=== PATIENT | female | born 1960 | race Caucasian/White ===

== ENCOUNTER → 2020-05-26 | Outpatient (CLI) | payer BC ==
[2020-05-26 09:39] VITALS: BP 119/70; PULSE 97; RESP 16; TEMP 98.9
== END | disposition home or self-care (01) ==
LOC: PROCWHC3 09:23
PROVIDERS: ATTEND Internal Medicine Endocrinology, Diabetes & Metabolism
DX: R23.2 Flushing (principal)
CPT/HCPCS: 83835; 99211; 36591; J1642

== ENCOUNTER → 2020-05-27 | Outpatient (CLI) | payer BC ==
--- NOTE | 2020-05-31 17:15 | PE ---
EXAM: WHOLE BODY PET CT DATE: 05/27/2020 CLINICAL HISTORY: 59-year-old female C90.00, initial staging multiple myeloma. Initially diagnosed ba ck in November 2009 status post bone marrow transplant in 2010. TECHNIQUE: Following the intravenous administration of 11.78 mCi of F-18 FDG, whole body images are performed from the skull vertex through the feet. Images are reviewed on the computer in the coronal , axial, and sagittal planes. Reconstructed rotating images are created on independent workstation a nd reviewed on the computer. A localization and attenuation correction CT is performed in conjuncti on with the PET scan. COMPARISON: None available Glucose level: 100 mg/dL Injection site: Right AC FINDINGS: PET: Physiologic FDG uptake within the neck. Physiologic FDG uptake within the chest. Scattered segmental mild bowel uptake likely physiologic. Otherwise, normal physiologic uptake in the abdomen and pelvis. Endplate deformities at T12, L1, and L2 appear to be chronic given the lack of any significant parave rtebral soft tissue swelling. Some mild associated uptake at these levels likely degenerative. Within the lower extremities, there is some nonspecific mild focal thickening in the right suprapatel lar region probably relating to some chronic synovial proliferation given the small effusion here. In addition, there is some mild focal uptake within the right midfoot that seems to be associated wit h degenerative change at the cuboid lateral cuneiform articulation. ATTENUATION CORRECTION CT: Visualized intracranial structures show no midline shift or hydrocephalus. Paranasal sinuses and mastoid air cells are clear. The orotracheal columns clear. No cervical lymphad enopathy. Right anterior chest wall injection port with catheter tip at the cavoatrial junction. Bilateral retr opectoral breast implants. Heart normal size without pericardial effusion. Mild LAD coronary calcific ations. Aorta normal caliber with bovine configuration. No thoracic lymphadenopathy by CT size criter ia allowing for noncontrast technique. Prominent dependent atelectasis in the lungs without consolid ation or pleural effusion. No dilated small bowel, free fluid, or free air. No mesenteric or retroperitoneal lymphadenopathy see n. There is moderate stool particularly in the left side of the colon. No pericolonic inflammatory ch ankit. Bladder partially distended. Uterus is visualized. Ovaries not clearly delineated from adjacent bowel . Pelvic phleboliths. No abnormal fluid collection in the pelvis or pelvic lymphadenopathy. Bones: Moderate degenerative change of the hips. Osteopenia. Facet arthropathy and degenerative disc disease throughout the lumbar spine. Cervical spondylosis and additional endplate spondylosis mid to lower thoracic spine. There is an exaggerated kyphosis of the thoracolumbar junction. Endplate deform ities as mentioned above. IMPRESSION: 1. Endplate deformities of T12, L1, and L2 result in an exaggerated kyphosis at the thoracolumbar kandy ction and have a chronic appearance given the lack of any surrounding soft tissue swelling. This can be compared to any available outside priors. Mild uptake at these levels is likely degenerative. 2. Otherwise, no suspicious hypermetabolism throughout the body to suggest active myelomatous involve ment.
== END | disposition home or self-care (01) ==
LOC: RADPETMAIN 14:16
PROVIDERS: ATTEND Internal Medicine Hematology & Oncology
DX: C90.00 Multiple myeloma not having achieved remission (principal); G95.29 Other cord compression; M40.205 Unspecified kyphosis, thoracolumbar region; Z92.21 Personal history of antineoplastic chemotherapy
CPT/HCPCS: 78816; A9552

== ENCOUNTER → 2020-10-22 | Outpatient (CLI) | payer BC, OTHER ==
--- NOTE | 2020-10-25 08:58 | PE ---
Nuclear medicine PET/CT HISTORY:C90.00 Multiple Myeloma without having achieved re Patient received 11 mCi F-18 FDG intravenously delayed scanning was performed through the whole body. An attenuation correction CT, localization CT scan was also performed and exam is correlated to prio r nuclear medicine PET/CT 05/27/2020 There is no significant interval change. Chest and neck: There is no supraclavicular or cervical adenopathy. No mediastinal, axillary, or sissy r adenopathy. Bilateral breast prostheses are noted. There is a right jugular central venous catheter , port is in the right pectoral region, catheter tip in the right atrium. There is no evident lung ma ss. Emphysematous changes are present in the upper lobes. There is no pleural or pericardial effusion . ABDOMEN: No suspicious uptake. Liver shows no mass. There is no retroperitoneal adenopathy. No ascite s. Uptake along the bowel is likely physiologic. Osseous structures show no suspicious uptake. There are lytic lucencies noted within the calvarium, s pine, pelvis and possibly related to low bone mineral, patient's underlying myeloma. Uptake along the legs and feet is likely physiologic. IMPRESSION: Findings consistent with patient's history multiple myeloma are suspected. No suspicious uptake.
== END | disposition home or self-care (01) ==
LOC: RADPETMAIN 08:21
PROVIDERS: ATTEND Internal Medicine Hematology & Oncology
DX: C90.00 Multiple myeloma not having achieved remission (principal)
CPT/HCPCS: 78816; A9552

== ENCOUNTER → 2020-11-18 | Outpatient (CLI) | payer BC, OTHER ==
--- NOTE | 2020-11-19 02:00 | MR ---
EXAMINATION TYPE: MR gennaro/ryan wo/w con DATE OF EXAM: 11/18/2020 COMPARISON: PET CT scan 10/22/2020 HISTORY: Multiple myeloma, mid back pain, low back pain down legs, and history of breast cancer. CONTRAST: Standard multiplanar, multisequence MRI departmental protocol utilizing 8.5 mL intravenous Gadavist g adolinium contrast. There is a thoracolumbar mild kyphotic deformity. There is 25% depression of the superior endplate of T6 vertebra. This shows mild enhancement. There is anterior wedging of T11 and T12 up to 35%. There is 70% wedging of L1 vertebra. There is biconcave deformity of L2 and L3 and L4 and L5 to 35% loss of height. I see no significant pathologic enhancement of the lumbar compression fractures. There is mi nimal enhancement of the T11 compression fracture. There is no thoracic or lumbar spinal stenosis. Lavonne mbar nerve roots appear normal. There is no evidence of a spinal cord mass. There is no thoracic para spinal mass. IMPRESSION: Numerous compression fractures. Mild thoracolumbar kyphotic deformity. There is some enhancement of T 6 and T11 that could relate to relatively acute fractures. I do not see a definite asymmetric lesion in the spine to suggest multiple myeloma. Myeloma not excluded. I do not see any significant decreased signal on the T1 images or typical asymmetric lesion that woul d be consistent with myeloma.
== END | disposition home or self-care (01) ==
LOC: RADMRIMAIN 20:40
PROVIDERS: ATTEND Internal Medicine Hematology & Oncology
DX: M48.54XA Collapsed vertebra, not elsewhere classified, thoracic region, initial encounter for fracture (principal)
CPT/HCPCS: 72157; 72158; A9585

== ENCOUNTER → 2020-11-24 | Outpatient (CLI) | payer BC, OTHER ==
--- NOTE | 2020-11-24 17:31 | ECHOF ---
Referral Reason:Z01.818 [facility] MEASUREMENTS -------- HEIGHT: 170.2 cm WEIGHT: 88.5 kg BP: RVIDd: 2.8 cm (< 3.3) IVSd: 1.2 cm (0.6 - 1.1) LVIDd: 4.1 cm (3.9 - 5.3) LVPWd: 1.1 cm (0.6 - 1.1) IVSs: 1.7 cm LVIDs: 2.9 cm LVPWs: 1.7 cm LAESV Index (A-L): 18.29 ml/m Ao Diam: 2.6 cm (2.0 - 3.7) AV Cusp: 1.8 cm (1.5 - 2.6) LA Diam: 3.4 cm (2.7 - 3.8) MV EXCURSION: 16.396 mm (> 18.000) MV EF SLOPE: 69 mm/s (70 - 150) EPSS: 0.5 cm MV E Ganesh: 0.37 m/s MV DecT: 376 ms MV A Ganesh: 0.65 m/s MV E/A Ratio: 0.57 RAP: 5.00 mmHg RVSP: 22.24 mmHg FINDINGS -------- Sinus rhythm. This was a technically difficult study with suboptimal views. Pt. Has Breast inplants The left ventricular size is normal. There is mild concentric left ventricular hypertrophy. Overa ll left ventricular systolic function is normal with, an EF between 55 - 60 %. The right ventricle is normal in size. Normal LA size by volume 22+/-6 ml/m2. The right atrial size is normal. 5.0mg of Lumason was utilized for enhancement of images Interatrial and interventricular septum intact. There is no evidence of aortic regurgitation. There is no evidence of aortic stenosis. There is trace mitral regurgitation. Mild tricuspid regurgitation present. There is no evidence of pulmonary hypertension. The right v entricular systolic pressure, as measured by Doppler, is 22.24mmHg. Trace/mild (physiologic) pulmonic regurgitation. The aortic root size is normal. IVC Not well visulized. There is no pericardial effusion. CONCLUSIONS -------- 1. The left ventricular size is normal. 2. There is mild concentric left ventricular hypertrophy. 3. Overall left ventricular systolic function is normal with, an EF between 55 - 60 %. 4. There is trace mitral regurgitation. 5. Mild tricuspid regurgitation present. 6. There is no evidence of pulmonary hypertension. 7. The right ventricular systolic pressure, as measured by Doppler, is 22.24mmHg. 8. Trace/mild (physiologic) pulmonic regurgitation. AUTO BODY DETAILER: Yadira Vegrara RDCS
== END | disposition home or self-care (01) ==
LOC: RADECHMAIN 11:58
PROVIDERS: ATTEND Internal Medicine Hematology & Oncology
DX: Z01.818 Encounter for other preprocedural examination (principal); I08.8 Other rheumatic multiple valve diseases
CPT/HCPCS: 93306; Q9950

== ENCOUNTER 2020-12-18 11:43 | Inpatient (IN) | payer BC, OTHER ==
[2020-12-18] MEDS ORDERED: IBUPROFEN IV 600 MG in SODIUM CHLORIDE 0.9% 250 ML IV STA (12:16)
[2020-12-18] MEDS ORDERED: ONDANSETRON 4 MG/2 ML VIAL IVP STA ×2 (12:16→14:22)
[2020-12-18] MEDS ORDERED: ACETAMINOPHEN TAB 500 MG TAB PO STA (12:16)
[2020-12-18] MEDS ORDERED: MORPHINE SULFATE 2 MG/ML SYRINGE IVP STA ×3 (12:16→14:22)
[2020-12-18] MEDS: SODIUM CHLORIDE 0.9% 500 ML 500 ML IV SCH ×3 (12:29→16:44)
--- NOTE | 2020-12-18 12:30 | ED ---
General Adult HPI - General Chief complaint: Nausea/Vomiting/Diarrhea Stated complaint: chemo reaction Time Seen by Provider: 12/18/20 11:45 Source: patient, RN notes reviewed, old records reviewed Mode of arrival: wheelchair Limitations: no limitations - History of Present Illness Initial comments: This a 60-year-old female presents emergency Department with a past medical history significant for multiple myeloma. Patient states she started new chem otherapy drug on and Saturday she started to feel better yesterday she was starting to get a slight headache and feeling very tired and nauseated. Patient today continues nausea and vomiting today and a significant headache. Patient states headache started as it was gotten considerably worse today. Patient states she doesn't think she has a fever even though I took her temperature is 102.2. Patient denies any cough patient is chest pain difficulty breathing first breath. Patient states she just aches all over. Patient denies any abdominal pain patient denies any dysuria hematuria urinary frequency. - Related Data Home Medications Medication Instructions Recorded Confirmed Acyclovir [Zovirax] 400 mg PO BID 12/18/20 12/18/20 Cholecalciferol [Vitamin D3 (25 50 mcg PO DAILY 12/18/20 12/18/20 Mcg = 1000 Iu)] Esomeprazole Magnesium [NexIUM] 40 mg PO DAILY 12/18/20 12/18/20 Gabapentin [Neurontin] 400 mg PO TID 12/18/20 12/18/20 HYDROcodone/APAP 10-325MG [[place] 1 tab PO Q6HR PRN 12/18/20 12/18/20 10-325] L.acidoph,Paracasei, B.lactis 1 cap PO DAILY 12/18/20 12/18/20 [Probiotic] Morphine Sulfate ER [Ms Contin] 15 mg PO HS 12/18/20 12/18/20 Morphine Sulfate ER [Ms Contin] 30 mg PO Q12HR 12/18/20 12/18/20 Rivaroxaban [Xarelto] 20 mg PO 12/18/20 12/18/20 Turmeric Root Extract [Turmeric] 500 mg PO DAILY 12/18/20 12/18/20 Venlafaxine HCl [Effexor XR] 150 mg PO DAILY 12/18/20 12/18/20 dexAMETHasone 20 mg PO 12/18/20 12/18/20 Allergies Allergy/AdvReac Type Severity Reaction Status Date / Time prochlorperazine AdvReac Rapid Verified 12/18/20 13:14 [From Compazine] Heart Rate Review of Systems ROS Statement: Those systems with pertinent positive or pertinent negative responses have been documented in the HPI. ROS Other: All systems not noted in ROS Statement are negative. Past Medical History Additional Past Medical History / Comment(s): multiple myeloma History of Any Multi-Drug Resistant Organisms: None Reported Past Surgical History: Breast Surgery Past Psychological History: No Psychological Hx Reported Smoking Status: Never smoker Past Alcohol Use History: None Reported Past Drug Use History: None Reported General Exam - General Exam Comments Initial Comments: GENERAL: Patient is well-developed and well-nourished. Patient is nontoxic and well- hydrated and is in mild distress. ENT: Neck is soft and supple. No significant lymphadenopathy is noted. Oropharynx is clear. Moist mucous membranes. Neck has full range of motion without eliciting any pain. EYES: The sclera were anicteric and conjunctiva were pink and moist. Extraocular movements were intact and pupils were equal round and reactive to light. E yelids were unremarkable. PULMONARY: Unlabored respirations. Good breath sounds bilaterally. No audible rales rhonchi or wheezing was noted. CARDIOVASCULAR: There is a regular rate and rhythm without any murmurs gallops or rubs. ABDOMEN: Soft and nontender with normal bowel sounds. SKIN: Skin is clear with no lesions or rashes and otherwise unremarkable. NEUROLOGIC: Patient is alert and oriented x3. Cranial nerves II through XII are grossly intact. Motor and sensory are also intact. Normal speech, volume and content. Symmetrical smile. MUSCULOSKELETAL: Normal extremities with adequate strength and full range of motion. LYMPHATICS: No significant lymphadenopathy is noted PSYCHIATRIC: Normal psychiatric evaluation. Limitations: no limitations Course Vital Signs 12/18/20 12/18/20 12/18/20 11:46 12:13 13:50 Temperature 97.8 F 102.2 F H 100.0 F H Pulse Rate 122 H 100 Respiratory 18 16 Rate Blood Pressure 115/70 95/51 O2 Sat by Pulse 97 95 Oximetry Medical Decision Making - Medical Decision Making EKG shows sinus tachycardia at 107 bpm VT interval is 118 QRS is 94 QT interval 342 QTC is 456 per patient's EKG shows no ST segment elevation or depression. CT of the brain shows no acute abnormality. Patient received a bolus of fluid of 1500 mL rales. Patient received Zofran and morphine, Tylenol or Motrin for the fever. Patient also received cefepime for the fever of unknown origin per the oncologist request. I spoke with Dr. Castillo and he agreed to admit the patient admitted the patient wrote admitting orders. - Lab Data Result diagrams: 12/18/20 12:21 12/18/20 12:21 Lab Results 12/18/20 12/18/20 12/18/20 Range/Units 12:21 12:21 12:21 WBC 3.0 L (3.8-10.6) k/uL RBC 2.91 L (3.80-5.40) m/uL Hgb 9.5 L (11.4-16.0) gm/dL Hct 27.0 L (34.0-46.0) % MCV 92.9 (80.0-100.0) fL MCH 32.5 (25.0-35.0) pg MCHC 35.0 (31.0-37.0) g/dL RDW 16.4 H (11.5-15.5) % Plt Count 182 (150-450) k/uL MPV 7.0 Neutrophils % 80 % Lymphocytes % 6 % Monocytes % 10 % Eosinophils % 2 % Basophils % 0 % Neutrophils # 2.4 (1.3-7.7) k/uL Lymphocytes # 0.2 L (1.0-4.8) k/uL Monocytes # 0.3 (0-1.0) k/uL Eosinophils # 0.1 (0-0.7) k/uL Basophils # 0.0 (0-0.2) k/uL Anisocytosis Slight PT (9.0-12.0) sec INR (<1.2) APTT (22.0-30.0) sec Sodium 134 L (137-145) mmol/L Potassium 3.5 (3.5-5.1) mmol/L Chloride 101 (98-107) mmol/L Carbon Dioxide 21 L (22-30) mmol/L Anion Gap 12 mmol/L BUN 20 H (7-17) mg/dL Creatinine 0.74 (0.52-1.04) mg/dL Est GFR (CKD-EPI)AfAm >90 (>60 ml/min/1.73 sqM) Est GFR (CKD-EPI)NonAf >90 (>60 ml/min/1.73 sqM) Glucose 112 H (74-99) mg/dL Plasma Lactic Acid Theodore 2.4 H* (0.7-2.0) mmol/L Calcium 8.8 (8.4-10.2) mg/dL Total Bilirubin 0.1 L (0.2-1.3) mg/dL AST 33 (14-36) U/L ALT 24 (4-34) U/L Alkaline Phosphatase 69 (38-126) U/L Total Protein 8.1 (6.3-8.2) g/dL Albumin 4.2 (3.5-5.0) g/dL Urine Color Urine Appearance (Clear) Urine pH (5.0-8.0) Ur Specific [place] (1.001-1.035) Urine Protein (Negative) Urine Glucose (UA) (Negative) Urine Ketones (Negative) Urine Blood (Negative) Urine Nitrite (Negative) Urine Bilirubin (Negative) Urine Urobilinogen (<2.0) mg/dL Ur Leukocyte Esterase (Negative) Urine RBC (0-5) /hpf Urine WBC (0-5) /hpf Urine Bacteria (None) /hpf Coronavirus (PCR) (Not Detectd) 12/18/20 12/18/20 12/18/20 Range/Units 12:38 13:27 14:03 WBC (3.8-10.6) k/uL RBC (3.80-5.40) m/uL Hgb (11.4-16.0) gm/dL Hct (34.0-46.0) % MCV (80.0-100.0) fL MCH (25.0-35.0) pg MCHC (31.0-37.0) g/dL RDW (11.5-15.5) % Plt Count (150-450) k/uL MPV Neutrophils % % Lymphocytes % % Monocytes % % Eosinophils % % Basophils % % Neutrophils # (1.3-7.7) k/uL Lymphocytes # (1.0-4.8) k/uL Monocytes # (0-1.0) k/uL Eosinophils # (0-0.7) k/uL Basophils # (0-0.2) k/uL Anisocytosis PT 10.5 (9.0-12.0) sec INR 1.0 (<1.2) APTT 30.1 H (22.0-30.0) sec Sodium (137-145) mmol/L Potassium (3.5-5.1) mmol/L Chloride (98-107) mmol/L Carbon Dioxide (22-30) mmol/L Anion Gap mmol/L BUN (7-17) mg/dL Creatinine (0.52-1.04) mg/dL Est GFR (CKD-EPI)AfAm (>60 ml/min/1.73 sqM) Est GFR (CKD-EPI)NonAf (>60 ml/min/1.73 sqM) Glucose (74-99) mg/dL Plasma Lactic Acid Theodore (0.7-2.0) mmol/L Calcium (8.4-10.2) mg/dL Total Bilirubin (0.2-1.3) mg/dL AST (14-36) U/L ALT (4-34) U/L Alkaline Phosphatase (38-126) U/L Total Protein (6.3-8.2) g/dL Albumin (3.5-5.0) g/dL Urine Color Light Yellow Urine Appearance Clear (Clear) Urine pH 6.5 (5.0-8.0) Ur Specific [place] 1.009 (1.001-1.035) Urine Protein Negative (Negative) Urine Glucose (UA) Negative (Negative) Urine Ketones Negative (Negative) Urine Blood Moderate H (Negative) Urine Nitrite Negative (Negative) Urine Bilirubin Negative (Negative) Urine Urobilinogen <2.0 (<2.0) mg/dL Ur Leukocyte Esterase Negative (Negative) Urine RBC 16 H (0-5) /hpf Urine WBC <1 (0-5) /hpf Urine Bacteria Rare H (None) /hpf Coronavirus (PCR) Not Detected (Not Detectd) Disposition Clinical Impression: Acute vomiting, Fever of unknown origin, Dehydration Disposition: ADMITTED IP TO THIS [facility] Referrals: Pam Chacon MD [Primary Care Provider] - 1-2 days Time of Disposition: 14:24
[2020-12-18 12:33] LABS: Anisocytosis Slight; Basophils % (A) 0 %; Eosinophils # (A) 0.1 k/uL (0-0.7); Eosinophils % (A) 2 %; HGB 9.5 gm/dL (11.4-16.0); Lymphocytes # (A) 0.2 k/uL (1.0-4.8); Lymphocytes % (A) 6 %; MCH 32.5 pg (25.0-35.0); MCV 92.9 fL (80.0-100.0); Monocytes # (A) 0.3 k/uL (0-1.0); Monocytes % (A) 10 %; Neutrophils # (A) 2.4 k/uL (1.3-7.7); Neutrophils % (A) 80 %; Platelet Count 182 k/uL (150-450); RBC 2.91 m/uL (3.80-5.40); RDW 16.4 % (11.5-15.5)
[2020-12-18 13:06] LABS: ALT 24 U/L (4-34); AST 33 U/L (14-36); African American GFR (CKD) >90 (>60 ml/min/1.73 sqM); Albumin 4.2 g/dL (3.5-5.0); Alkaline Phosphatase 69 U/L (38-126); Anion Gap 12 mmol/L; Blood Urea Nitrogen 20 mg/dL (7-17); Calcium 8.8 mg/dL (8.4-10.2); Carbon Dioxide 21 mmol/L (22-30); Chloride 101 mmol/L (98-107); Glucose 112 mg/dL (74-99); Non-African American GFR(CKD) >90 (>60 ml/min/1.73 sqM); Potassium 3.5 mmol/L (3.5-5.1); Sodium 134 mmol/L (137-145); Total Bilirubin 0.1 mg/dL (0.2-1.3); Total Protein 8.1 g/dL (6.3-8.2)
--- NOTE | 2020-12-18 13:21 | XR ---
EXAMINATION TYPE: XR chest 2V DATE OF EXAM: 12/18/2020 COMPARISON: Thoracic spine MRI dated 11/18/2020 HISTORY: 60 years Female. STUDY INDICATION GIVEN: Fever . TECHNIQUE: Frontal lateral chest radiographs IMPRESSION: Patchy pneumonic consolidation is seen in the left lower lobe. No pneumothorax or pleural effusion se en. Cardiomediastinal silhouette is normal. Postsurgical changes seen in the mediastinum. Accessed right Port-A-Cath tip at the cavoatrial junction. Clips in the left axilla are also noted. Remote fracture deformities loss of vertebral height is seen in the lower thoracic and upper lumbar spine, better seen and demonstrated on most recent MR of the spine.
--- NOTE | 2020-12-18 13:26 | CT ---
EXAMINATION TYPE: CT brain wo con DATE OF EXAM: 12/18/2020 COMPARISON: None HISTORY: Acute headache TECHNIQUE: CT scan of the head performed without contrast CT DLP: 1178.4 mGycm Automated exposure control for dose reduction was used. FINDINGS: No evidence for acute intracranial hemorrhage, midline shift or mass effect. [place]-white matter differ entiation is preserved. CSF spaces and ventricular system are normal in configuration. Minimal atherosclerotic calcification seen in the intracranial internal carotid arteries. No acute orbital, osseous or soft tissue abnormality. Paranasal sinuses and mastoid air cells are wit hin normal limit with mild mucosal thickening. Few well-defined hypoattenuating lesions are seen in the left frontal and parietal lobes superiorly, were seen on 10/22/2020. IMPRESSION: 1. NO EVIDENCE OF ACUTE INTRACRANIAL ABNORMALITY. 2. STABLE FEW WELL-DEFINED LOW ATTENUATING LESIONS SEEN IN THE LEFT FRONTAL AND PARIETAL LOBES, THESE COULD BE RELATED TO KNOWN MULTIPLE MYELOMA, CLINICAL CORRELATION RECOMMENDED.
[2020-12-18 13:42] LABS: Partial Thromboplastin Time 30.1 sec (22.0-30.0); Prothrombin Time 10.5 sec (9.0-12.0)
[2020-12-18] MEDS ORDERED: CEFEPIME 2 GM in SODIUM CHLORIDE 0.9% 100 ML IVPB STA (13:59)
[2020-12-18 14:15] LABS: Appearance,Urine Clear (Clear); Bacteria,Urine Rare /hpf; Bilirubin,Urine Negative (Negative); Blood,Urine Moderate (Negative); Color,Urine Light Yellow; Glucose,Urine (UA) Negative (Negative); Ketones,Urine Negative (Negative); Leukocyte Esterase,Urine Negative (Negative); Nitrite,Urine Negative (Negative); PH, Urine 6.5 (5.0-8.0); Protein,Urine Negative (Negative); RBC,Urine 16 /hpf (0-5); Specific Gravity,Urine 1.009 (1.001-1.035); Urobilinogen,Urine <2.0 mg/dL (<2.0); WBC,Urine <1 /hpf (0-5)
[2020-12-18] MEDS ORDERED: ONDANSETRON 4 MG/2 ML VIAL IVP PRN (14:22)
[2020-12-18] MEDS ORDERED: ACETAMINOPHEN TAB 325 MG TAB PO PRN (14:30)
[2020-12-18] MEDS: GABAPENTIN 400 MG CAP PO SCH ×2 (17:31→21:22)
[2020-12-18] MEDS: MORPHINE SULFATE 4 MG/ML SYRINGE IVP PRN (17:32)
[2020-12-18] MEDS ORDERED: MORPHINE SULFATE ER 15 MG TABLET PO SCH (21:00)
[2020-12-18] MEDS: MORPHINE SULFATE ER 30 MG TABLET PO SCH (21:22)
[2020-12-18] MEDS: RIVAROXABAN 20 MG TAB PO SCH (21:42)
[2020-12-18] MEDS: ACYCLOVIR 200 MG CAP PO SCH (21:42)
[2020-12-18] MEDS: CEFEPIME 2 GM in SODIUM CHLORIDE 0.9% 100 ML IVPB SCH (23:31)
--- NOTE | 2020-12-19 00:13 | P.HPIM ---
History of Present Illness H&P Date: 12/18/20 Chief Complaint: Nausea vomiting and diarrhea. Patient is a 60-year-old female with a known history of multiple myeloma diagnosed about 10 years ago and was on chemotherapy, recently started on new chemotherapy presents ER with complaints of nausea vomiting and feeling tired and diarrhea. Patient was started on new chemotherapy drug on and Saturday. Saturday she started feeling better but since yesterday her symptoms got worse. Continue his to have nausea and vomiting and severe headache. Patient was febrile while in the ER. With T-max of 102.2 and pulse 122 and respirations 18 and pulse ox 97% on room air. No complaints of chest pain. No shortness of. No cough or sputum production. Denied any dysuria or hematuria. Laboratory data showed WBC is 3.0 hemoglobin 9.5 and platelets 182 Sodium 134 potassium 3.5 chloride 101 bicarb 21 BUN 20 and creatinine 0.74 lactic acid 2.4 Urinalysis showed moderate blood and 16 RBCs. COVID-19 PCR not detected Chest x-ray showed patchy pneumonic consolidation is seen the left lower lobe. No pneumothorax or pleural effusion seen. EKG showed sinus tachycardia Review of Systems Constitutional: Patient does have subjective fevers and chills. Generalized weakness and lethargic.. Abdomen: Patient complains of nausea vomiting and diarrhea. No abdominal pain. Cardiovascular: Patient denies any chest pain or short of breath no palpitations. Respiratory: patient denied any cough is from production. No shortness of breath Neurologic: Patient denied any numbness or tingling headache. Musculoskeletal: Patient denies any complaints of joint swelling or deformity. Skin: Negative Psychiatric: Negative Endocrine: No heat or cold intolerance. No recent weight gain. Genitourinary: No dysuria or hematuria. All other 14 point ROS negative except the above Past Medical History Additional Past Medical History / Comment(s): multiple myeloma History of Any Multi-Drug Resistant Organisms: None Reported Past Surgical History: Breast Surgery Past Psychological History: No Psychological Hx Reported Smoking Status: Never smoker Past Alcohol Use History: None Reported Past Drug Use History: None Reported - Past Family History Father Family Medical History: Cancer Additional Family Medical History / Comment(s): from lung cancer Mother Family Medical History: AFIB, Coronary Artery Disease (CAD) Medications and Allergies Home Medications Medication Instructions Recorded Confirmed Type Acyclovir [Zovirax] 400 mg PO BID 12/18/20 12/18/20 History Cholecalciferol [Vitamin D3 (25 50 mcg PO DAILY 12/18/20 12/18/20 History Mcg = 1000 Iu)] Esomeprazole Magnesium [NexIUM] 40 mg PO DAILY 12/18/20 12/18/20 History Gabapentin [Neurontin] 400 mg PO TID 12/18/20 12/18/20 History HYDROcodone/APAP 10-325MG [[place] 1 tab PO Q6HR PRN 12/18/20 12/18/20 History 10-325] L.acidoph,Paracasei, B.lactis 1 cap PO DAILY 12/18/20 12/18/20 History [Probiotic] Morphine Sulfate ER [Ms Contin] 15 mg PO HS 12/18/20 12/18/20 History Morphine Sulfate ER [Ms Contin] 30 mg PO Q12HR 12/18/20 12/18/20 History Rivaroxaban [Xarelto] 20 mg PO HS 12/18/20 12/18/20 History Turmeric Root Extract [Turmeric] 500 mg PO DAILY 12/18/20 12/18/20 History Venlafaxine HCl [Effexor XR] 150 mg PO DAILY 12/18/20 12/18/20 History dexAMETHasone 20 mg PO TH 12/18/20 12/18/20 History Allergies Allergy/AdvReac Type Severity Reaction Status Date / Time prochlorperazine AdvReac Rapid Verified 12/18/20 13:14 [From Compazine] Heart Rate Physical Exam Vitals: Vital Signs Temp Pulse Resp BP Pulse Ox 12/18/20 15:01 98.8 F 113 H 18 109/69 98 12/18/20 13:50 100.0 F H 100 16 95/51 95 12/18/20 12:13 102.2 F H 12/18/20 11:46 97.8 F 122 H 18 115/70 97 Intake and Output 12/18/20 12/18/20 12/18/20 06:59 14:59 22:59 Other: Weight 83.915 kg PHYSICAL EXAMINATION: Patient is lying in the bed comfortably, no acute distress, awake alert and oriented.. HEENT: Normocephalic. Neck is supple. Pupils reactive. Nostrils clear. Oral cavity is moist. Neck reveals no JVD, carotid bruits, or thyromegaly. CHEST EXAMINATION: Trachea is central. Symmetrical expansion. Lung rodriguez clear to auscultation and percussion. CARDIAC: Normal S1, S2 with no gallops. No murmurs ABDOMEN: Soft. Bowel sounds normal. No organomegaly. No abdominal bruits. Extremities: reveal no edema. No clubbing or cyanosis Neurologically awake, alert, oriented x3 with well-coordinated movements. No focal deficits noted Skin: No rash or skin lesions. Psychiatric: Coperative. Nonsuicidal Musculoskeletal: No joint swelling or deformity. Normal range of motion. Results CBC & Chem 7: 12/19/20 06:34 12/19/20 06:34 Labs: Abnormal Lab Results - Last 24 Hours (Table) 12/18/20 12/18/20 12/18/20 Range/Units 12:21 12:21 12:21 WBC 3.0 L (3.8-10.6) k/uL RBC 2.91 L (3.80-5.40) m/uL Hgb 9.5 L (11.4-16.0) gm/dL Hct 27.0 L (34.0-46.0) % RDW 16.4 H (11.5-15.5) % Lymphocytes # 0.2 L (1.0-4.8) k/uL APTT (22.0-30.0) sec Sodium 134 L (137-145) mmol/L Carbon Dioxide 21 L (22-30) mmol/L BUN 20 H (7-17) mg/dL Glucose 112 H (74-99) mg/dL Plasma Lactic Acid Theodore 2.4 H* (0.7-2.0) mmol/L Total Bilirubin 0.1 L (0.2-1.3) mg/dL Urine Blood (Negative) Urine RBC (0-5) /hpf Urine Bacteria (None) /hpf 12/18/20 12/18/20 Range/Units 13:27 14:03 WBC (3.8-10.6) k/uL RBC (3.80-5.40) m/uL Hgb (11.4-16.0) gm/dL Hct (34.0-46.0) % RDW (11.5-15.5) % Lymphocytes # (1.0-4.8) k/uL APTT 30.1 H (22.0-30.0) sec Sodium (137-145) mmol/L Carbon Dioxide (22-30) mmol/L BUN (7-17) mg/dL Glucose (74-99) mg/dL Plasma Lactic Acid Theodore (0.7-2.0) mmol/L Total Bilirubin (0.2-1.3) mg/dL Urine Blood Moderate H (Negative) Urine RBC 16 H (0-5) /hpf Urine Bacteria Rare H (None) /hpf Thrombosis Risk Factor Assmnt - DVT/VTE Prophylaxis DVT/VTE Prophylaxis: Pharmacologic Prophylaxis ordered Assessment and Plan Assessment: Fever likely due to left lower lobe consolidation/pneumonia. Neutropenic fever Lactic acidosis Hypovolemic hyponatremia Multiple myeloma , recently started on new chemotherapy drug Nausea vomiting and generalized weakness. History of PE currently on anticoagulation thyroxine 1 DVT prophylaxis Plan: Patient be continued on IV hydration. Symptomatic management for nausea and vomiting. Patient does not have any symptoms of cough or sputum production. Continue with antibiotic in the form of cefepime for possible gram-negative pneumonia. Follow up blood cultures. Continue with symptomatic management and encourage oral intake. Continue to follow closely. Oncology and ID was consulted. Time with Patient: Greater than 30
[2020-12-19] MEDS: MORPHINE SULFATE 4 MG/ML SYRINGE IVP PRN ×3 (03:14→20:13)
[2020-12-19] MEDS: HYDROcodone/APAP 10-325MG 1 EACH TAB PO PRN ×3 (05:29→18:19)
[2020-12-19] MEDS: MORPHINE SULFATE ER 30 MG TABLET PO SCH ×2 (08:46→22:06)
[2020-12-19] MEDS: LACTOBACILLUS ACIDOPH & BULGAR 1 EACH PACKET PO SCH (08:46)
[2020-12-19] MEDS: GABAPENTIN 400 MG CAP PO SCH ×3 (08:46→22:06)
[2020-12-19] MEDS: ACYCLOVIR 200 MG CAP PO SCH ×2 (08:46→20:12)
[2020-12-19] MEDS: CEFEPIME 2 GM in SODIUM CHLORIDE 0.9% 100 ML IVPB SCH ×2 (08:47→16:00)
[2020-12-19] MEDS: VENLAFAXINE HCL ER 150 MG CAP PO SCH (08:48)
[2020-12-19] MEDS: PANTOPRAZOLE 40 MG TABLET PO SCH (08:48)
[2020-12-19 11:41] LABS: Basophils # (A) 0.01 X 10*3/uL (0.00-0.10); Basophils % (A) 0.5 %; Eosinophils # (A) 0.01 X 10*3/uL (0.04-0.35); Eosinophils % (A) 0.5 %; HCT 27.5 % (37.2-46.3); HGB 8.9 g/dL (12.0-15.0); Lymphocytes # (A) 0.35 X 10*3/uL (0.90-5.00); Lymphocytes % (A) 16.1 %; MCHC 32.4 g/dL (32.0-37.0); MCV 95.8 fL (80.0-97.0); Mean Platelet Volume 10.5 fL (9.5-12.2); Monocytes # (A) 0.23 X 10*3/uL (0.20-1.00); Monocytes % (A) 10.6 %; Neutrophils # (A) 1.54 X 10*3/uL (1.80-7.70); Neutrophils % (A) 70.9 %; Platelet Count 156 X 10*3/uL (140-440); RBC 2.87 X 10*6/uL (4.10-5.20); WBC 2.17 X 10*3/uL (4.50-10.00)
[2020-12-19 11:53] LABS: African American GFR (CKD) 71.9 (60.0-200.0); Anion Gap 7.2 mmol/L (4.00-12.00); Calcium 8.4 mg/dL (8.7-10.3); Carbon Dioxide 25.8 mmol/L (21.6-31.8); Non-African American GFR(CKD) 62.1 (60.0-200.0); Potassium 3.7 mmol/L (3.5-5.5)
--- NOTE | 2020-12-19 16:39 | P.PN ---
Subjective Progress Note Date: 12/19/20 Principal diagnosis: Neutropenic fever Left-sided pneumonia Patient is a 60-year-old female with a known history of multiple myeloma diagnosed about 10 years ago and was on chemotherapy, recently started on new chemotherapy presents ER with complaints of nausea vomiting and feeling tired and diarrhea. Patient was started on new chemotherapy drug on and Saturday. Saturday she started feeling better but since yesterday her symptoms got worse. Continue his to have nausea and vomiting and severe headache. Patient was febrile while in the ER. With T-max of 102.2 and pulse 122 and respirations 18 and pulse ox 97% on room air. No complaints of chest pain. No shortness of. No cough or sputum production. Denied any dysuria or hematuria. Laboratory data showed WBC is 3.0 hemoglobin 9.5 and platelets 182 Sodium 134 potassium 3.5 chloride 101 bicarb 21 BUN 20 and creatinine 0.74 lactic acid 2.4 Urinalysis showed moderate blood and 16 RBCs. COVID-19 PCR not detected Chest x-ray showed patchy pneumonic consolidation is seen the left lower lobe. No pneumothorax or pleural effusion seen. EKG showed sinus tachycardia 12/19/2020 Patient is feeling better today. Nausea and vomiting improved. No diarrhea. Able to tolerate oral diet. Patient is still having slight temperature with T- max 98.8. Follow-up culture reports. Continued on antibiotics. Denied any complains of cough or sputum production. No headache or dizziness or lightheadedness. No dysuria or hematuria. Current medications reviewed. Objective - Vital Signs Vital signs: Vital Signs Temp 98.2 F 12/19/20 14:00 Pulse 107 H 12/19/20 14:00 Resp 17 12/19/20 14:00 BP 96/64 12/19/20 14:00 Pulse Ox 91 L 12/19/20 14:00 Intake & Output 12/18/20 12/19/20 12/19/20 18:59 06:59 18:59 Intake Total 500 380 Balance 500 380 Weight 83.915 kg Intake: Intake, IV Titration 500 Amount Sodium Chloride 0.9% 500 500 ml 500 ml @ 1000 mls/hr IV Q[facility]M [facility] Rx#:[id number] Oral 380 Other: Voiding Method Toilet # Voids 1 - Exam PHYSICAL EXAMINATION: Patient is lying in the bed comfortably, no acute distress, awake alert and oriented.. HEENT: Normocephalic. Neck is supple. Pupils reactive. Nostrils clear. Oral cavity is moist. Neck reveals no JVD, carotid bruits, or thyromegaly. CHEST EXAMINATION: Trachea is central. Symmetrical expansion. Lung rodriguez clear to auscultation and percussion. CARDIAC: Normal S1, S2 with no gallops. No murmurs ABDOMEN: Soft. Bowel sounds normal. No organomegaly. No abdominal bruits. Extremities: reveal no edema. No clubbing or cyanosis Neurologically awake, alert, oriented x3 with well-coordinated movements. No focal deficits noted Skin: No rash or skin lesions. Psychiatric: Coperative. Nonsuicidal Musculoskeletal: No joint swelling or deformity. Normal range of motion. - Labs CBC & Chem 7: 12/19/20 06:34 12/19/20 06:34 Labs: Abnormal Lab Results - Last 24 Hours (Table) 12/19/20 12/19/20 Range/Units 06:34 06:34 WBC 2.17 L (4.50-10.00) X 10*3/uL RBC 2.87 L (4.10-5.20) X 10*6/uL Hgb 8.9 L (12.0-15.0) g/dL Hct 27.5 L (37.2-46.3) % RDW 16.0 H (11.5-14.5) % Absolute Nucleated RBC 0.02 H (0.00-0.00) X 10*3/uL Neutrophils # 1.54 L (1.80-7.70) X 10*3/uL Lymphocytes # 0.35 L (0.90-5.00) X 10*3/uL Eosinophils # 0.01 L (0.04-0.35) X 10*3/uL NRBC/100 WBC Diff 0.9 H (0.0-0.0) /100 WBCS Calcium 8.4 L (8.7-10.3) mg/dL Microbiology - Last 24 Hours (Table) 12/18/20 12:20 Blood Culture - Preliminary Blood No Growth after 24 hours 12/18/20 12:35 Blood Culture - Preliminary Blood No Growth after 24 hours Assessment and Plan Assessment: Fever likely due to left lower lobe consolidation/pneumonia. Neutropenic fever Lactic acidosis Hypovolemic hyponatremia Multiple myeloma , recently started on new chemotherapy drug Nausea vomiting and generalized weakness. History of PE currently on anticoagulation thyroxine 1 DVT prophylaxis Plan: Patient be continued on IV hydration. Symptomatic management for nausea and vomiting. Patient does not have any symptoms of cough or sputum production. Continue with antibiotic in the form of cefepime for possible gram-negative pneumonia. Follow up blood cultures. Continue with symptomatic management and encourage oral intake. Continue to follow closely. Oncology and ID was consulted. Time with Patient: Greater than 30
--- NOTE | 2020-12-19 17:46 | P.CONS ---
History of Present Illness - Reason for Consult Consult date: 12/19/20 MM Requesting physician: Kerwin Castillo - Chief Complaint Vomiting, headache, fever - History of Present Illness Ms. Bro is a very pleasant 60 yo female with history of MM, s/p several lines of treatmetn as outlined below, most recently started on Kyprolis/dex on 12/15/20, here for intractable vomiting, headaches, body aches, and fever of 102.2. Work up so far with CXR reveals LLL patchy consolidation, UA negative, WBC 2.1, ANC 1.5, plt 156, Hgb 8.9, and CT head negative except for stable frontal/parietal lobe lesions compared to 10/22/20. I do not see this CT report however and unclear if this is due to intracranial lesions from MM. She was hydrated and started on antibiotics, cultures pending, and admitted. Overall feeling better on antibiotics and hydration. Continues to have bilateral frontal/temporal headaches that is barely controlled on her narcotics she takes for prior bone lesions and fractures from her MM. Pt does mention that she had fevers with velcade when her MM was initially diagnosed and needed premedication with tylenol. Onc History: This is a very nice lady who was initially diagnosed with IgG [place] multiple myeloma in 2010 (high risk,17p deletion),she was treated with RVD for 4 months followed by autologous stem cell transplant in May/2011 and maintenance revlimid until October/2013 when she had disease progression,she was put on revlimid/dex for about 2 months with further progression,then she went on clinical trial with ixazomib,pomalidomide/dex but progressed in about a month with rising M-protein,she was then treated with bendamustine/velcade for 4 cycles with very good response,M-protein was down to 0.13 gm/dl,and went on maintenance velcade since August/2014. In 2017,she was diagnosed with left breast cancer,triple negative,stage IIB (T2:2.5 cm tumor),N1 (1/7 nodes was positive),her myeloma treatment was held,she had bilateral mastectomies and received adjuvant 12 weekly taxol followed by 4 cycles of AC. 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 In early 2017,she had progression of her myeloma and was put on darzalex,subsequently,pomalyst/dex added in the spring (most of her initial treatment were done at [facility] in [place]). She moved to [place] and resumed her treatmet with Dr Piña.(previous records reviewed) She came to see me to establish treatment closer to home. On 03/17/2019,SPEP revealed M-protein of 0.5gm/dl,serum IgG 880 mg/dl,serum free kappa 2.57 mg/dl,free lambda 0.04mg/dl She had a spine MRI done at [facility] on 05/17/2019,due to von pain,there was no new lesions related to her multiple myeloma. On 05/18/2019,SPEP and immunofixation identified a M protein,M-spike 0.57gm/dl,serum IgG 871 mg/dl,serum free kappa 2.75mg/dl,lambda 0.02 mg/dl. On 07/21/2019,SPEP and immunofixation reveale M-spike 0.59 mg/dl,serum IgG 1010mg/dl,serum free kappa 3.46 and Lambda 0.03 mg/dl On 09/15/2019,M-protein was 0.8gm/dl,IgG 1022 mg/dl,[place]/lambda ratio 23.17 On 09/29/2019,M-Protein was 0.69 gm/dl(IgGK).serum IgG 1050 mg/dl.serum free kappa 6.44 mg/dl, On 10/28/2019,IgGK Mprotein was 0.75gm/dl,serum IgG 1170mg/dl,serum free kappa 7.28mg/dl, On 11/25/2019,IgGK M protein was 0.76gm/dl,serum IgG 1140mg/dl,serum free kappa 5.47,ratio 54.7. On 12/28/2019,IgG-K M-protein was 0,8gm/dl,serum IgG 1440 mg/dl,serum free kappa 6.8 mg/dl,ratio 48.57 On 01/27/2020,SPEP and immunofixation revealed IgG [place] M-protein 0.8gm/dl,serum free kappa 7.8mg/dl,ratio 71.45 On 04/27/2020,SPEP and immunofixation revealed IgGK M-spike of 1.0 gm/dl,serum IgG 1380 mg/dl.serum free kappa 14.9 mg/dl. On 05/27/2020,PET scan revealed no evidence of disease. On 07/05/2020,SPEP and immunofixation revealed IgGK M-spike of 1.2gm/dl,serum IgG 1710 mg/dl,serum free kappa 18.5 mg/dl. On 07/08/2020,SPEP and immunofixation revealed IgGK M-spike 1.2 gm/dl,serum free bull 18.5 mg/dl,IgG 1760 mg/dl. On 09/06/2020,serum free kappa was 23 mg/dl,lambda 0.14 mg/dl,IgG K M spike 1.29 gm/dl. On 10/11/2020,SPEP and immunofixation revealed IgK M-protein of 1.54 gm/dl,serum free kappa 36.2 mg/dl,lambda 0.14 mg/dl,serum IgG 2010 mg/dl. On 10/22/2020,PET scan revealed osseous structures also include multiple compression deformities noted previously within the lumbar region, lower thoracic region, heterogeneous bone density is suspected. At the T6-7 level there is some mild uptake noted, SUV 3.1, at T11 SUV is 3. On 11/18/2020,Spine MRI revealed multiple compression deformities,some enhancement at T6 and T11 suggestive of possible new acute compression fracture,no evidence of any soft tissue mass 11/21/20: Seen in follow up by Dr. Bennett. Plan on switching treatmetn from pomal yst to kyprolis/dex. Referred for consideration of CAR T cell therapy, and possibly add selinexor in future. 12/15/20: Received 1st cycle of Kyprolis/dex. Past Medical History Additional Past Medical History / Comment(s): multiple myeloma History of Any Multi-Drug Resistant Organisms: None Reported Past Surgical History: Breast Surgery Past Psychological History: No Psychological Hx Reported Smoking Status: Never smoker Past Alcohol Use History: None Reported Past Drug Use History: None Reported - Past Family History Father Family Medical History: Cancer Additional Family Medical History / Comment(s): from lung cancer Mother Family Medical History: AFIB, Coronary Artery Disease (CAD) Medications and Allergies Home Medications Medication Instructions Recorded Confirmed Type Acyclovir [Zovirax] 400 mg PO BID 12/18/20 12/18/20 History Cholecalciferol [Vitamin D3 (25 50 mcg PO DAILY 12/18/20 12/18/20 History Mcg = 1000 Iu)] Esomeprazole Magnesium [NexIUM] 40 mg PO DAILY 12/18/20 12/18/20 History Gabapentin [Neurontin] 400 mg PO TID 12/18/20 12/18/20 History HYDROcodone/APAP 10-325MG [[place] 1 tab PO Q6HR PRN 12/18/20 12/18/20 History 10-325] L.acidoph,Paracasei, B.lactis 1 cap PO DAILY 12/18/20 12/18/20 History [Probiotic] Morphine Sulfate ER [Ms Contin] 15 mg PO HS 12/18/20 12/18/20 History Morphine Sulfate ER [Ms Contin] 30 mg PO Q12HR 12/18/20 12/18/20 History Rivaroxaban [Xarelto] 20 mg PO HS 12/18/20 12/18/20 History Turmeric Root Extract [Turmeric] 500 mg PO DAILY 12/18/20 12/18/20 History Venlafaxine HCl [Effexor XR] 150 mg PO DAILY 12/18/20 12/18/20 History dexAMETHasone 20 mg PO TH 12/18/20 12/18/20 History Allergies Allergy/AdvReac Type Severity Reaction Status Date / Time prochlorperazine AdvReac Rapid Verified 12/18/20 13:14 [From Compazine] Heart Rate Physical Exam Vitals: Vital Signs Temp Pulse Pulse Resp BP BP Pulse Ox 12/19/20 08:00 99.8 F H 90 17 98/58 93 L 12/19/20 07:35 95 12/19/20 02:00 97.8 F 111 H 17 101/60 95 12/18/20 20:00 98.6 F 100 16 119/68 98 12/18/20 16:15 98.7 F 94 18 100/61 100 12/18/20 15:01 98.8 F 113 H 18 109/69 98 12/18/20 13:50 100.0 F H 100 16 95/51 95 Intake and Output 12/18/20 12/19/20 12/19/20 22:59 06:59 14:59 Intake Total 500 380 Balance 500 380 Intake: Intake, IV Titration 500 Amount Sodium Chloride 0.9% 500 500 ml 500 ml @ 1000 mls/hr IV Q35M [facility] Rx#:[id number] Oral 380 Other: # Voids 1 Weight 83.915 kg Gen: No acute distress. HEENT: Mucosa moist. Neck: Supple Lungs: Aniket respiratory distress. Heart: Regular rate. MSK: Appropriate strength in all 4 extremities. Skin: No jaundice. Neuro: Alert and oriented x3 Psych: Appropriate affect. Results CBC & Chem 7: 12/19/20 06:34 12/19/20 06:34 Labs: Abnormal Lab Results - Last 24 Hours (Table) 12/18/20 12/18/20 12/18/20 Range/Units 13:27 14:03 15:07 WBC (4.50-10.00) X 10*3/uL RBC (4.10-5.20) X 10*6/uL Hgb (12.0-15.0) g/dL Hct (37.2-46.3) % RDW (11.5-14.5) % Absolute Nucleated RBC (0.00-0.00) X 10*3/uL Neutrophils # (1.80-7.70) X 10*3/uL Lymphocytes # (0.90-5.00) X 10*3/uL Eosinophils # (0.04-0.35) X 10*3/uL NRBC/100 WBC Diff (0.0-0.0) /100 WBCS APTT 30.1 H (22.0-30.0) sec Plasma Lactic Acid Theodore 0.6 L (0.7-2.0) mmol/L Calcium (8.7-10.3) mg/dL Urine Blood Moderate H (Negative) Urine RBC 16 H (0-5) /hpf Urine Bacteria Rare H (None) /hpf 12/19/20 12/19/20 Range/Units 06:34 06:34 WBC 2.17 L (4.50-10.00) X 10*3/uL RBC 2.87 L (4.10-5.20) X 10*6/uL Hgb 8.9 L (12.0-15.0) g/dL Hct 27.5 L (37.2-46.3) % RDW 16.0 H (11.5-14.5) % Absolute Nucleated RBC 0.02 H (0.00-0.00) X 10*3/uL Neutrophils # 1.54 L (1.80-7.70) X 10*3/uL Lymphocytes # 0.35 L (0.90-5.00) X 10*3/uL Eosinophils # 0.01 L (0.04-0.35) X 10*3/uL NRBC/100 WBC Diff 0.9 H (0.0-0.0) /100 WBCS APTT (22.0-30.0) sec Plasma Lactic Acid Theodore (0.7-2.0) mmol/L Calcium 8.4 L (8.7-10.3) mg/dL Urine Blood (Negative) Urine RBC (0-5) /hpf Urine Bacteria (None) /hpf Chest x-ray: report reviewed CT Scan - head: report reviewed Assessment and Plan Assessment: 1. Fevers 2. Intractable nausea/vomiting 3. Headache 4. Myalgia's 5. MM on chemotherapy Plan: Ms. Bro is a very pleasant 60 yo female with history of MM, follows with Dr. Bennett, here for fevers, intractable vomiting and headaches. She recently started new treatment on 12/15/20, with Kyprolis/Dex. Began having N/V/MORSE next day and subsequently fever 102. In ED, CXR with possible patchy consolidation. Otherwise, CBC without severe neutropenia, mild stable anemia. CT head with stable frontal and parietal lesions compared to 10/2020, however I do not see report of brain imaging from 10/2020. Cultures obtained, and she was started on antibiotics and admitted. Agree with antibiotics, pending infectious work up. If infectious work up negative, symptoms could be due to Kyprolis, however will need to rule out infectious etiology as pt immunocompromised due to her MM and treatment. Could consider ID consult. Also unclear if she has brain lesions as seen on CT. Will need to clarify imaging from 10/[address] is being compared to. Pt continues to have bilateral frontal/parietal headache which is new. If headache persistent will need MRI brain to better characterize this. Monitor CBC and plan supportive transfusion for Hgb <7 or plt <15 or bleeding. Further decisions about Kyprolis, which will be due on 12/22/20, pending pt's overall condition and discharge. Discussed with pt and her sister and they are agreeable. All questions answere d. We will continue to follow pt with you.
[2020-12-19] MEDS: RIVAROXABAN 20 MG TAB PO SCH (20:13)
--- NOTE | 2020-12-19 23:47 | P.CONS ---
History of Present Illness - Reason for Consult Consult date: 12/19/20 Pneumonia Requesting physician: Kerwin Castillo - Chief Complaint Fever and weakness x 1 day - History of Present Illness History of present illness : Patient is a 60-year female with a past medical history sniffing for multiple myeloma for the patient is currently under chemotherapy patient mention she was started on a new chemo last that she received through the right chest wall Mediport patient mention 2 days later that is on Saturday she was out of it and was not feeling well she presented to the [facility] ER yesterday morning for evaluation of headache feeling very tired and nauseated patient did have a few episodes of vomiting during presentation to the hospital and did have significant headache patient denies having any URI symptoms but denies having any cough or sputum production no abdominal pain no diarrhea on presentation to the hospital patient did have fever 102.2 degree for an height and a low-grade fever of 99.8 this morning patient is currently breathing comfortably 96% on room air patient did have a mild leukopenia as well as lymphopenia kidney function was normal lactic acid was elevated liver enzymes are normal urine has been negative mccann PCR was negative patient did have a chest x-ray patient pneumonia consolidations in the left lower lobe patient is currently being treated with the cefepime infectious disease was consulted today with concern for pneumonia Review of system: CONSTITUTIONAL: Positive for weakness along with the fever. EYES: No complaint. ENT: No complaint. RESPIRATORY: As per history of present illness CARDIOVASCULAR: No complaint. GENITOURINARY: No complaint. GASTROINTESTINAL: As per history of present illness. MUSCULOSKELETAL: No complaint. INTEGUMENTARY: No complaint. PSYCHOLOGIC: No complaint. ENDOCRINE: No complaint. NEUROLOGIC: No complaint. Past medical history : Reviewed, documented below Past surgical history : Reviewed, documented below Social history: Reviewed, documented below Medications: Reviewed, as documented below EXAMINATION: Vital sigans= Reviewed and documented below GENERAL DESCRIPTION: Middle-aged female lying in bed, no distress. No tachypnea or accessory muscle of respiration use. HEENT: Shows Pallor , no scleral icterus. Oral mucous membrane is dry. NECK: Trachea central, no thyromegaly. LUNGS: Unlabored breathing. Clear to auscultation anteriorly. No wheeze or crackle. HEART: S1, S2, regular rate and rhythm. ABDOMEN: Soft, no tenderness , guarding or rigidity EXTREMITIES: No edema of feet. SKIN: No rash, no masses palpable. NEUROLOGICAL: The patient is awake, alert, oriented x3, mood and affect normal. LABS AND RADIOLOGY: Reviewed results see below Assessment : Patient presented to hospital with headache not feeling well did have nausea vomiting but no abdominal pain or diarrhea in this patient who do have history of multiple myeloma on chemotherapy and last chemo has been about 2 to 3 days ago with only abnormality so far has been chest x-ray concerning for left lobe pneumonia at the patient currently do not have any other obvious focus of infection with abdominal soft clinically examination and no evidence of any cellulitis Plan: 1-we will obtain CRP procalcitonin urine for Legionella antigen sputum if available 2-patient to continue with cefepime 2 g every 8 hour 3-gentle IV fluid We will follow on clinical condition and cultures to further adjust medication if needed Thank you for this consultation we will follow the patient along with you Past Medical History Additional Past Medical History / Comment(s): multiple myeloma History of Any Multi-Drug Resistant Organisms: None Reported Past Surgical History: Breast Surgery Past Psychological History: No Psychological Hx Reported Smoking Status: Never smoker Past Alcohol Use History: None Reported Past Drug Use History: None Reported - Past Family History Father Family Medical History: Cancer Additional Family Medical History / Comment(s): from lung cancer Mother Family Medical History: AFIB, Coronary Artery Disease (CAD) Medications and Allergies Home Medications Medication Instructions Recorded Confirmed Type Acyclovir [Zovirax] 400 mg PO BID 12/18/20 12/18/20 History Cholecalciferol [Vitamin D3 (25 50 mcg PO DAILY 12/18/20 12/18/20 History Mcg = 1000 Iu)] Esomeprazole Magnesium [NexIUM] 40 mg PO DAILY 12/18/20 12/18/20 History Gabapentin [Neurontin] 400 mg PO TID 12/18/20 12/18/20 History HYDROcodone/APAP 10-325MG [[place] 1 tab PO Q6HR PRN 12/18/20 12/18/20 History 10-325] L.acidoph,Paracasei, B.lactis 1 cap PO DAILY 12/18/20 12/18/20 History [Probiotic] Morphine Sulfate ER [Ms Contin] 15 mg PO HS 12/18/20 12/18/20 History Morphine Sulfate ER [Ms Contin] 30 mg PO Q12HR 12/18/20 12/18/20 History Rivaroxaban [Xarelto] 20 mg PO HS 12/18/20 12/18/20 History Turmeric Root Extract [Turmeric] 500 mg PO DAILY 12/18/20 12/18/20 History Venlafaxine HCl [Effexor XR] 150 mg PO DAILY 12/18/20 12/18/20 History dexAMETHasone 20 mg PO TH 12/18/20 12/18/20 History Allergies Allergy/AdvReac Type Severity Reaction Status Date / Time prochlorperazine AdvReac Rapid Verified 12/18/20 13:14 [From Compazine] Heart Rate Physical Exam Vitals: Vital Signs Temp Pulse Resp BP Pulse Ox 12/19/20 14:00 98.2 F 107 H 17 96/64 91 L 12/19/20 08:00 99.8 F H 90 17 98/58 93 L 12/19/20 07:35 95 12/19/20 02:00 97.8 F 111 H 17 101/60 95 12/18/20 20:00 98.6 F 100 16 119/68 98 Intake and Output 12/19/20 12/19/20 12/19/20 06:59 14:59 22:59 Intake Total 380 Balance 380 Intake: Oral 380 Other: Voiding Method Toilet # Voids 1 3 Results CBC & Chem 7: 12/19/20 06:34 12/19/20 06:34 Labs: Abnormal Lab Results - Last 24 Hours (Table) 12/19/20 12/19/20 Range/Units 06:34 06:34 WBC 2.17 L (4.50-10.00) X 10*3/uL RBC 2.87 L (4.10-5.20) X 10*6/uL Hgb 8.9 L (12.0-15.0) g/dL Hct 27.5 L (37.2-46.3) % RDW 16.0 H (11.5-14.5) % Absolute Nucleated RBC 0.02 H (0.00-0.00) X 10*3/uL Neutrophils # 1.54 L (1.80-7.70) X 10*3/uL Lymphocytes # 0.35 L (0.90-5.00) X 10*3/uL Eosinophils # 0.01 L (0.04-0.35) X 10*3/uL NRBC/100 WBC Diff 0.9 H (0.0-0.0) /100 WBCS Calcium 8.4 L (8.7-10.3) mg/dL Microbiology - Last 24 Hours (Table) 12/18/20 12:20 Blood Culture - Preliminary Blood No Growth after 24 hours 12/18/20 12:35 Blood Culture - Preliminary Blood No Growth after 24 hours
[2020-12-20] MEDS: HYDROcodone/APAP 10-325MG 1 EACH TAB PO PRN ×3 (00:36→17:42)
[2020-12-20] MEDS: CEFEPIME 2 GM in SODIUM CHLORIDE 0.9% 100 ML IVPB SCH ×3 (00:37→16:18)
[2020-12-20] MEDS: MORPHINE SULFATE 4 MG/ML SYRINGE IVP PRN (05:37)
[2020-12-20] MEDS: VENLAFAXINE HCL ER 150 MG CAP PO SCH (07:26)
[2020-12-20] MEDS: PANTOPRAZOLE 40 MG TABLET PO SCH (07:26)
[2020-12-20] MEDS: ACYCLOVIR 200 MG CAP PO SCH ×2 (07:27→20:39)
[2020-12-20] MEDS: GABAPENTIN 400 MG CAP PO SCH ×3 (07:27→20:38)
[2020-12-20] MEDS: LACTOBACILLUS ACIDOPH & BULGAR 1 EACH PACKET PO SCH (07:27)
[2020-12-20] MEDS: MORPHINE SULFATE ER 30 MG TABLET PO SCH ×2 (09:11→20:38)
[2020-12-20] MEDS ORDERED: BUTALB/APAP/CAFF 50-325-40MG TAB PO PRN (10:09)
[2020-12-20] MEDS ORDERED: HYDROmorphone 0.5 MG/0.5 ML SYRINGE IVP STA (10:12)
[2020-12-20 11:45] LABS: HCT 27.9 % (37.2-46.3); HGB 8.7 g/dL (12.0-15.0); MCH 30.3 pg (27.0-32.0); MCHC 31.2 g/dL (32.0-37.0); MCV 97.2 fL (80.0-97.0); RBC 2.87 X 10*6/uL (4.10-5.20); RDW 16.4 % (11.5-14.5); WBC 0.87 X 10*3/uL (4.50-10.00)
[2020-12-20 11:46] LABS: Basophils # (A) 0 X 10*3/uL (0.00-0.10); Basophils % (A) 0 %; Eosinophils # (A) 0.02 X 10*3/uL (0.04-0.35); Eosinophils % (A) 2.3 %; Lymphocytes # (A) 0.42 X 10*3/uL (0.90-5.00); Lymphocytes % (A) 48.3 %; Mean Platelet Volume 10.4 fL (9.5-12.2); Monocytes # (A) 0.08 X 10*3/uL (0.20-1.00); Monocytes % (A) 9.2 %; Neutrophils # (A) 0.34 X 10*3/uL (1.80-7.70); Neutrophils % (A) 39.1 %; Platelet Count 139 X 10*3/uL (140-440)
[2020-12-20 15:17] LABS: C Reactive Protein <0.4 mg/dL (0.0-0.8); Carbon Dioxide 26.4 mmol/L (21.6-31.8); Chloride 106 mmol/L (96-109); Glucose 86 mg/dL (70-110); Potassium 3.8 mmol/L (3.5-5.5); Sodium 137 mmol/L (135-145)
[2020-12-20 15:18] LABS: African American GFR (CKD) 94.2 (60.0-200.0); BUN/Creat Ratio 16.25 Ratio (12.00-20.00); Calcium 8.2 mg/dL (8.7-10.3); Non-African American GFR(CKD) 81.3 (60.0-200.0)
--- NOTE | 2020-12-20 19:20 | PN ---
PROGRESS NOTE DATE OF SERVICE: 12/20/2020 REASON FOR FOLLOWUP: Fever, possible pneumonia. INTERVAL HISTORY: Patient is afebrile. The patient is breathing comfortably. She is still complaining of some bilateral temporal area headache though slightly decreased intensity. No nausea, vomiting. No chest pain, shortness of breath or cough. No abdominal pain or diarrhea. PHYSICAL EXAMINATION: Blood pressure 104/65, pulse of 81, temperature 98.2. She is 97% on room air. General description is a middle-aged female lying in bed in no distress. Respiratory system: Unlabored breathing, decreased intensity in breath sounds in the base, with no wheeze. Heart S1, S2. Regular rate and rhythm. Abdomen soft. No tenderness. LAB DATA: With 8.7, white count 0.87, BUN of 13, creatinine 0.83. Urine for Legionella antigen was negative. Blood culture has been negative so far. DIAGNOSTIC IMPRESSION AND PLAN: Patient admitted to the hospital with febrile neutropenia concerning for possible pneumonia as no other obvious focus of infection. No evidence of any neck rigidity. The patient's fever responded to the cefepime to continue while waiting for the culture to finalize and monitor clinical course closely. MMODL / IJN: [id number] /
--- NOTE | 2020-12-20 19:57 | P.PN ---
Progress Note - Text Progress Note Date: 12/20/20 Neutropenic fever Left-sided pneumonia 60-year-old female, being followed Dr. Kiran Chacon with a known history of multiple myeloma diagnosed about 10 years ago and was on chemotherapy, recently started on new chemotherapy presents ER with complaints of nausea vomiting and feeling tired and diarrhea. Patient was started on new chemotherapy drug on and Saturday. Saturday she started feeling better but since yesterday her symptoms got worse. nausea and vomiting and severe headache. febrile while in the ER. With T-max of 102.2 and pulse 122 and respirations 18 and pulse ox 97% on room air. No complaints of chest pain. No shortness of. No cough or sputum production. Denied any dysuria or hematuria. Laboratory data showed WBC is 3.0 hemoglobin 9.5 and platelets 182 Sodium 134 potassium 3.5 chloride 101 bicarb 21 BUN 20 and creatinine 0.74 lactic acid 2.4 Urinalysis showed moderate blood and 16 RBCs. COVID-19 PCR not detected Chest x-ray showed patchy pneumonic consolidation is seen the left lower lobe. No pneumothorax or pleural effusion seen. EKG showed sinus tachycardia 12/19/2020 Patient is feeling better today. Nausea and vomiting improved. No diarrhea. Able to tolerate oral diet. Patient is still having slight temperature with T- max 98.8. Follow-up culture reports. Continued on antibiotics. Denied any complains of cough or sputum production. No headache or dizziness or lightheadedness. No dysuria or hematuria. 12/20/2020: Appetite is okay. No cough. Low-grade fever. Diet. Does use her CPAP at night. Tired. An IV cefepime. Review of systems: Was done for constitutional, cardiovascular, GI, pulmonary. relevant finding as above Active Medications Acetaminophen (Acetaminophen Tab 325 Mg Tab) 650 mg PO Q4HR PRN PRN Reason: Fever and/ or Pain Acetaminophen/Butalbital/Caffeine (Butalb/Apap/Caff 50-325-40mg Tab) 1 each PO Q4HR PRN PRN Reason: Headache Last Admin: 12/20/20 11:21 Dose: 1 each Documented by: Hydrocodone Bitart/Acetaminophen (Hydrocodone/Apap 10-325mg 1 Each Tab) 1 each PO Q6HR PRN PRN Reason: Pain Last Admin: 12/20/20 17:42 Dose: 1 each Documented by: Acyclovir (Acyclovir 200 Mg Cap) 400 mg PO BID [facility] Last Admin: 12/20/20 07:27 Dose: 400 mg Documented by: Dexamethasone (Dexamethasone 4 Mg Tab) 20 mg PO TH [facility] Gabapentin (Gabapentin 400 Mg Cap) 400 mg PO TID [facility] Last Admin: 12/20/20 16:18 Dose: 400 mg Documented by: Cefepime HCl 2 gm/ Sodium (Chloride) 100 mls @ 25 mls/hr IVPB Q8HR [facility] Last Admin: 12/20/20 16:18 Dose: 25 mls/hr Documented by: Lactobacillus Acidoph/Bulgaricus (Lactobacillus Acidoph & Bulgar 1 Each Packet) 1 each PO DAILY [facility] Last Admin: 12/20/20 07:27 Dose: 1 each Documented by: Morphine Sulfate (Morphine Sulfate 4 Mg/Ml Syringe) 4 mg IVP Q4HR PRN PRN Reason: Pain Last Admin: 12/20/20 05:37 Dose: 4 mg Documented by: Morphine Sulfate (Morphine Sulfate Er 30 Mg Tablet) 30 mg PO Q12HR [facility]; Protocol Last Admin: 12/20/20 09:11 Dose: 30 mg Documented by: Ondansetron HCl (Ondansetron 4 Mg/2 Ml Vial) 4 mg IVP Q6HR PRN PRN Reason: Nausea And Vomiting Last Admin: 12/18/20 16:47 Dose: 4 mg Documented by: Pantoprazole Sodium (Pantoprazole 40 Mg Tablet) 40 mg PO AC-BRKFST [facility] Last Admin: 12/20/20 07:26 Dose: 40 mg Documented by: Rivaroxaban (Rivaroxaban 20 Mg Tab) 20 mg PO [facility]; Protocol Last Admin: 12/19/20 20:13 Dose: 20 mg Documented by: Venlafaxine HCl (Venlafaxine Hcl Er 150 Mg Cap) 150 mg PO DAILY [facility] Last Admin: 12/20/20 07:26 Dose: 150 mg Documented by: On examination: VITAL SIGNS: [T-max 100.6, 83, 16, 92/52, 97% room air] GENERAL APPEARANCE: Reclining bed, awake, not in distress. HEENT: Normal external appearance of nose and ear. Oral cavity normal EYES: Pupils equal. Conjunctiva normal. NECK: JVD not raised. Mass not palpable. RESPIRATORY: Respiratory effort normal. Lungs decreased breath sound. CARDIOVASCULAR: First and second sounds normal. No edema. ABDOMEN: Soft. Liver and spleen not palpable. No tenderness. No mass palpable. PSYCHIATRY: Alert and oriented x3. Mood and affect normal. INVESTIGATIONS, reviewed in the clinical context: White count 0.87 hemoglobin 8.7 platelets 136 potassium 3.8 creatinine 0.8 UA positive for blood, RBC 16 Urine Legionella antigen: Negative COVID-19: Not detected EKG tracing: Sinus tachycardia, 107 CT brain without contrast: Stable. Well-defined low attenuating lesion seen in the left frontal and parietal lobes. Chest x-ray: Patchy pneumonic consolidation is seen in the left lower lobe. Assessment and plan: -Left lower lobe pneumonia, suspect gram-negative organism in an immunosuppressed patient IV cefepime 2 g every 8 -Sepsis from pneumonia IV fluids. Blood cultures negative until now. -Chronic thoracolumbar vertebral fracture for multiple myeloma Pain control when necessary -Pancytopenia from chemotherapy: Worsening Follow CBC. CSF/GF per hematology -IgG Multiple myeloma [high risk, 17 P deletion], would disease progression. Received several lines of treatment done. Most recently started onKyprolis/dex Follow-up with oncology -Cephalgia, causing acute on chronic pain from multiple myeloma including bone lesions Pain management. Patient is on [place] 10, Neurontin, MS Contin Continue with IV cefepime. Low-grade fever. Add IV fluids. Follow CBC closely. Other medications to continue. Activity as tolerated.
--- NOTE | 2020-12-20 20:02 | P.PN ---
Subjective Progress Note Date: 12/20/20 Principal diagnosis: Nausea, Vomiting, Dehydration Feeling better since admission. Complains of headache, and nausea with morphine. No further nausea or vomiting. Objective - Vital Signs Vital signs: Vital Signs Temp 97.9 F 12/20/20 14:00 Pulse 83 12/20/20 14:00 Resp 16 12/20/20 14:00 BP 92/52 12/20/20 14:00 Pulse Ox 97 12/20/20 14:00 Intake & Output 12/20/20 12/20/20 12/21/20 06:59 18:59 06:59 Intake Total 1080 Output Total 900 Balance -900 1080 Intake: Oral 1080 Output: Urine 900 Other: Voiding Method Toilet # Voids 2 3 - Constitutional General appearance: Present: cooperative, no acute distress - EENT Eyes: Present: EOMI, PERRLA ENT: Present: NA/AT, normal oropharynx - Neck Neck: Present: normal ROM - Respiratory Respiratory: bilateral: CTA - Cardiovascular Rhythm: regular - Gastrointestinal General gastrointestinal: Present: normal bowel sounds, soft - Integumentary Integumentary: Present: pale - Neurologic Neurologic: Present: CNII-XII intact - Musculoskeletal Musculoskeletal: Present: generalized weakness, strength equal bilaterally - Psychiatric Psychiatric: Present: A&O x's 3 - Labs CBC & Chem 7: 12/20/20 06:37 12/20/20 06:37 Labs: Abnormal Lab Results - Last 24 Hours (Table) 12/20/20 12/20/20 Range/Units 06:37 06:37 WBC 0.87 L* (4.50-10.00) X 10*3/uL RBC 2.87 L (4.10-5.20) X 10*6/uL Hgb 8.7 L (12.0-15.0) g/dL Hct 27.9 L (37.2-46.3) % MCV 97.2 H (80.0-97.0) fL MCHC 31.2 L (32.0-37.0) g/dL RDW 16.4 H (11.5-14.5) % Plt Count 139 L (140-440) X 10*3/uL Plt Count Comment DECREASED A Neutrophils # 0.34 L* (1.80-7.70) X 10*3/uL Lymphocytes # 0.42 L (0.90-5.00) X 10*3/uL Monocytes # 0.08 L (0.20-1.00) X 10*3/uL Eosinophils # 0.02 L (0.04-0.35) X 10*3/uL Calcium 8.2 L (8.7-10.3) mg/dL Microbiology - Last 24 Hours (Table) 12/18/20 12:35 Blood Culture - Preliminary Blood No Growth after 48 hours 12/18/20 12:20 Blood Culture - Preliminary Blood No Growth after 48 hours Assessment and Plan (1) Multiple myeloma Current Visit: Yes Status: Acute Code(s): C90.00 - MULTIPLE MYELOMA NOT HAVING ACHIEVED REMISSION SNOMED Code(s): 067354519 (2) Neutropenic fever Current Visit: Yes Status: Acute Code(s): D70.9 - NEUTROPENIA, UNSPECIFIED; R50.81 - FEVER PRESENTING WITH CONDITIONS CLASSIFIED ELSEWHERE SNOMED Code(s): 681842201 Plan: Afebrile since 12.19.20 - T Max 100.3 Neutropenia today, blood cultures negative to date. COntinues on antibiotics COmplaints of headache - Fiorcet (without aspirin) Will monitor CBC, if remains afebrile and cultures continue to be negative will hold off on growth factor, discussed with primary oncologist. Continue supportive care in interim Infectious disease following COntinue Antibiotics
[2020-12-20] MEDS: RIVAROXABAN 20 MG TAB PO SCH (20:39)
[2020-12-21] MEDS: CEFEPIME 2 GM in SODIUM CHLORIDE 0.9% 100 ML IVPB SCH ×3 (00:31→15:26)
[2020-12-21 04:21] VITALS: RESP 18
[2020-12-21 07:40] LABS: HCT 26.3 % (34.0-46.0); HGB 9.2 gm/dL (11.4-16.0); MCH 33.3 pg (25.0-35.0); MCV 95.1 fL (80.0-100.0); Mean Platelet Volume 7.9; Platelet Count 128 k/uL (150-450); RBC 2.77 m/uL (3.80-5.40); RDW 15.8 % (11.5-15.5)
[2020-12-21 08:08] LABS: WBC 1.2 k/uL (3.8-10.6)
[2020-12-21] MEDS: GABAPENTIN 400 MG CAP PO SCH ×2 (08:36→15:26)
[2020-12-21] MEDS: ACYCLOVIR 200 MG CAP PO SCH (08:36)
[2020-12-21] MEDS: PANTOPRAZOLE 40 MG TABLET PO SCH (08:37)
[2020-12-21] MEDS: MORPHINE SULFATE ER 30 MG TABLET PO SCH (08:37)
[2020-12-21] MEDS: LACTOBACILLUS ACIDOPH & BULGAR 1 EACH PACKET PO SCH (08:37)
[2020-12-21 09:19] LABS: Band Neutrophils % 2 %; Eosinophils # (M) 0.02 k/uL (0-0.7); Lymphocytes # (M) 0.58 k/uL (1.0-4.8); Monocytes # (M) 0.11 k/uL (0-1.0); Neutrophils % (M) 39 %
[2020-12-21 09:24] LABS: Metamyelocytes # (M) 0.01 k/uL (0); Metamyelocytes % 1 %; Myelocytes # (M) 0.01 k/uL (0); Myelocytes % 1 %; Nucleated Red Blood Cells 0 /100 WBC (0-0); Total Cells Counted 200
[2020-12-21 09:26] LABS: Rouleaux Present
[2020-12-21 10:02] LABS: Prothrombin Time 10.3 sec (9.0-12.0)
[2020-12-21 10:07] LABS: Albumin 3.4 g/dL (3.5-5.0); Albumin/Globulin Ratio 0.9; Bilirubin,Unconjugated 0.1 mg/dL (0.0-1.1); Globulin 3.6 g/dL; Magnesium 1.6 mg/dL (1.6-2.3); Phosphorus 2.5 mg/dL (2.5-4.5); Total Bilirubin 0.1 mg/dL (0.2-1.3)
[2020-12-21] MEDS: VENLAFAXINE HCL ER 150 MG CAP PO SCH (10:33)
[2020-12-21 11:52] VITALS: BP 100/63; PULSE 87; TEMP 98.2
--- NOTE | 2020-12-21 13:33 | PN ---
PROGRESS NOTE DATE OF SERVICE: 12/21/2020. REASON FOR FOLLOWUP: Fever, possible pneumonia. INTERVAL HISTORY: The patient is afebrile. No fever in the last 48 hours. The patient is feeling better. Breathing comfortably. The patient's headache has improved. No chest pain, shortness of breath or cough. No abdominal pain and no diarrhea. PHYSICAL EXAMINATION: Blood pressure 100/63 with a pulse of 87, temperature 98.2. She is 99% on room air. General description is a middle-aged female up in the bed in no distress. Respiratory system: Unlabored breathing. Clear to auscultation anteriorly. Heart S1, S2. Regular rate and rhythm. Abdomen: Soft. No tenderness. LABS: Hemoglobin 9.2, white count 1.2. Blood culture has been negative. DIAGNOSTIC IMPRESSION AND PLAN: Patient with febrile neutropenia concerning for possible pneumonia. Overall improvement to continue. Transition to oral Ceftin on discharge and close outpatient followup. MMODL / IJN: [id number] /
[2020-12-21 13:39] LABS: African American GFR (CKD) 110.7 (60.0-200.0); Albumin 3.6 g/dL (3.80-4.90); Albumin/Globulin Ratio 1.29 (1.60-3.17); Anion Gap 5.1 mmol/L (4.00-12.00); BUN/Creat Ratio 15.71 Ratio (12.00-20.00); Calcium 8.8 mg/dL (8.7-10.3); Carbon Dioxide 26.9 mmol/L (21.6-31.8); Globulin 2.8 g/dL (1.6-3.3); Non-African American GFR(CKD) 95.5 (60.0-200.0); Potassium 4.2 mmol/L (3.5-5.5); Total Bilirubin 0.2 mg/dL (0.2-1.2); Total Protein 6.4 g/dL (6.2-8.2)
--- NOTE | 2020-12-21 17:35 | P.PN ---
Subjective Progress Note Date: 12/21/20 Principal diagnosis: Nausea, Vomiting, Dehydration She was scheduled to have next kyprolis treatment tomorrow, this has since been on hold. Objective - Vital Signs Vital signs: Vital Signs Temp 98.2 F 12/21/20 11:20 Pulse 87 12/21/20 11:20 Resp 18 12/21/20 11:20 BP 100/63 12/21/20 11:20 Pulse Ox 99 12/21/20 11:20 Intake & Output 12/20/20 12/21/20 12/21/20 18:59 06:59 18:59 Intake Total 1080 340 Balance 1080 340 Intake: Intake, IV Titration 100 Amount Cefepime 2 gm In Sodium 100 Chloride 0.9% 100 ml @ 25 mls/hr IVPB Q8HR [facility] Rx# :[id number] Oral 1080 240 Other: Voiding Method Toilet # Voids 3 1 - Exam - Constitutional General appearance: Present: cooperative, no acute distress - EENT Eyes: Present: EOMI, PERRLA ENT: Present: NA/AT, normal oropharynx - Neck Neck: Present: normal ROM - Respiratory Respiratory: bilateral: CTA - Cardiovascular Rhythm: regular - Gastrointestinal General gastrointestinal: Present: normal bowel sounds, soft - Integumentary Integumentary: Present: pale - Neurologic Neurologic: Present: CNII-XII intact - Musculoskeletal Musculoskeletal: Present: generalized weakness, strength equal bilaterally - Psychiatric Psychiatric: Present: A&O x's 3 - Labs CBC & Chem 7: 12/21/20 07:09 12/21/20 07:09 Labs: Abnormal Lab Results - Last 24 Hours (Table) 12/20/20 12/21/20 12/21/20 Range/Units 06:37 07:09 09:04 WBC 1.2 L* (3.8-10.6) k/uL RBC 2.77 L (3.80-5.40) m/uL Hgb 9.2 L (11.4-16.0) gm/dL Hct 26.3 L (34.0-46.0) % RDW 15.8 H (11.5-15.5) % Plt Count 128 L (150-450) k/uL Neutrophils # (Manual) 0.40 L* (1.3-7.7) k/uL Lymphocytes # (Manual) 0.58 L (1.0-4.8) k/uL Metamyelocytes # (Man) 0.01 H (0) k/uL Myelocytes # (Manual) 0.01 H (0) k/uL Calcium 8.2 L (8.7-10.3) mg/dL Total Bilirubin 0.1 L (0.2-1.3) mg/dL Albumin 3.4 L (3.5-5.0) g/dL Microbiology - Last 24 Hours (Table) 12/18/20 12:35 Blood Culture - Preliminary Blood No Growth after 48 hours 12/18/20 12:20 Blood Culture - Preliminary Blood No Growth after 48 hours Assessment and Plan (1) Multiple myeloma Current Visit: Yes Status: Acute Code(s): C90.00 - MULTIPLE MYELOMA NOT HAVING ACHIEVED REMISSION SNOMED Code(s): 477521652 (2) Neutropenic fever Current Visit: Yes Status: Acute Code(s): D70.9 - NEUTROPENIA, UNSPECIFIED; R50.81 - FEVER PRESENTING WITH CONDITIONS CLASSIFIED ELSEWHERE SNOMED Code(s): 412897781 Plan: Afebrile since 12.19.20 - T Max 100.3 Neutropenia today, blood cultures negative to date. Continues on antibiotics Complaints of headache - Fiorcet (without aspirin) Will monitor CBC, if remains afebrile and cultures continue to be negative will hold off on growth factor, discussed with primary oncologist. Continue supportive care in interim Infectious disease following Continue Antibiotics Will hold second treatment of Kyprolis with recent Neutropenic fever and schedule patient to see Dr. Bennett prior to re-evaluate given she has only had one treatment of this new therapy and developed neutropenia. Ok for discharge per ID, recommend abx at discharge
--- NOTE | 2020-12-21 21:29 | P.DS ---
Providers Date of admission: 12/18/20 14:26 Expected date of discharge: 12/21/20 Attending physician: Dagoberto Clark Consults: 12/18/20 14:26 Consult Physician Urgent Consulting Provider: Amanda Sahni Consult Reason/Comments: Multiple myeloma Do you want consulting provider notified?: Yes 12/19/20 16:35 Consult Physician Routine Consulting Provider: Thais Maki Consult Reason/Comments: Pneumonia Do you want consulting provider notified?: Yes, Notify in am Primary care physician: Pam Chacon [facility] Course: Neutropenic fever Left-sided pneumonia 60-year-old female, being followed Dr. Kiran Chacon with a known history of multiple myeloma diagnosed about 10 years ago and was on chemotherapy, recently started on new chemotherapy presents ER with complaints of nausea vomiting and feeling tired and diarrhea. Patient was started on new chemotherapy drug on and Saturday. Saturday she started feeling better but since yesterday her symptoms got worse. nausea and vomiting and severe headache. febrile while in the ER. With T-max of 102.2 and pulse 122 and respirations 18 and pulse ox 97% on room air. No complaints of chest pain. No shortness of. No cough or sputum production. Denied any dysuria or hematuria. Laboratory data showed WBC is 3.0 hemoglobin 9.5 and platelets 182 Sodium 134 potassium 3.5 chloride 101 bicarb 21 BUN 20 and creatinine 0.74 lactic acid 2.4 Urinalysis showed moderate blood and 16 RBCs. COVID-19 PCR not detected Chest x-ray showed patchy pneumonic consolidation is seen the left lower lobe. No pneumothorax or pleural effusion seen. EKG showed sinus tachycardia 12/19/2020 Patient is feeling better today. Nausea and vomiting improved. No diarrhea. Able to tolerate oral diet. Patient is still having slight temperature with T- max 98.8. Follow-up culture reports. Continued on antibiotics. Denied any complains of cough or sputum production. No headache or dizziness or lightheadedness. No dysuria or hematuria. 12/20/2020: Appetite is okay. No cough. Low-grade fever. Diet. Does use her CPAP at night. Tired. An IV cefepime. 12/21/2020.: Doing much better. Norespiratory symptoms. No fever. Very keen to go home. Cleared by ID and hematology. Complete a course of oral cefepime. Discussed with the patient. Discussion and discharge planning more than 35 minutes On examination: VITAL SIGNS: 98.2, 87, 18, 100/63, 99% room air GENERAL APPEARANCE: Reclining bed, awake, not in distress. HEENT: Normal external appearance of nose and ear. Oral cavity normal EYES: Pupils equal. Conjunctiva normal. NECK: JVD not raised. Mass not palpable. RESPIRATORY: Respiratory effort normal. Lungs decreased breath sound. CARDIOVASCULAR: First and second sounds normal. No edema. ABDOMEN: Soft. Liver and spleen not palpable. No tenderness. No mass palpable. PSYCHIATRY: Alert and oriented x3. Mood and affect normal. INVESTIGATIONS, reviewed in the clinical context: December 21: WBC 1.2 hemoglobin 9.2. IgG 1560. Pro-calcitonin 0.09 White count 0.87 hemoglobin 8.7 platelets 136 potassium 3.8 creatinine 0.8 UA positive for blood, RBC 16 Urine Legionella antigen: Negative COVID-19: Not detected EKG tracing: Sinus tachycardia, 107 CT brain without contrast: Stable. Well-defined low attenuating lesion seen in the left frontal and parietal lobes. Chest x-ray: Patchy pneumonic consolidation is seen in the left lower lobe. Assessment and plan: -Left lower lobe pneumonia, suspect gram-negative organism in an immunosuppressed patient IV cefepime 2 g every 8. DC home on Ceftin 5 mg twice a day for 5 days -Sepsis from pneumonia: Improved IV fluids. Blood cultures negative -Chronic thoracolumbar vertebral fracture for multiple myeloma Pain control when necessary -Pancytopenia from chemotherapy: Worsening Follow CBC. CSF/GF per hematology -IgG Multiple myeloma [high risk, 17 P deletion], would disease progression. Received several lines of treatment done. Most recently started onKyprolis/dex Follow-up with oncology -Cephalgia, causing acute on chronic pain from multiple myeloma including bone lesions Pain management. Patient is on [place] 10, Neurontin, MS Contin Disposition: Home Patient Condition at Discharge: Good Plan - Discharge Summary New Discharge Prescriptions: New Cefuroxime Axetil [Ceftin] 500 mg PO BID #10 tab Continue Gabapentin [Neurontin] 400 mg PO TID Cholecalciferol [Vitamin D3 (25 Mcg = 1000 Iu)] 50 mcg PO DAILY Esomeprazole Magnesium [NexIUM] 40 mg PO DAILY Venlafaxine HCl [Effexor XR] 150 mg PO DAILY Morphine Sulfate ER [Ms Contin] 30 mg PO Q12HR Rivaroxaban [Xarelto] 20 mg PO HS L.acidoph,Paracasei, B.lactis [Probiotic] 1 cap PO DAILY HYDROcodone/APAP 10-325MG [[place]lyde 10-325] 1 tab PO Q6HR PRN PRN Reason: Pain Morphine Sulfate ER [Ms Contin] 15 mg PO HS Acyclovir [Zovirax] 400 mg PO BID dexAMETHasone 20 mg PO TH No Action Turmeric Root Extract [Turmeric] 500 mg PO DAILY Discharge Medication List Acyclovir [Zovirax] 400 mg PO BID 12/18/20 [History] Cholecalciferol [Vitamin D3 (25 Mcg = 1000 Iu)] 50 mcg PO DAILY 12/18/20 [History] Esomeprazole Magnesium [NexIUM] 40 mg PO DAILY 12/18/20 [History] Gabapentin [Neurontin] 400 mg PO TID 12/18/20 [History] HYDROcodone/APAP 10-325MG [Clyde 10-325] 1 tab PO Q6HR PRN 12/18/20 [History] L.acidoph,Paracasei, B.lactis [Probiotic] 1 cap PO DAILY 12/18/20 [History] Morphine Sulfate ER [Ms Contin] 15 mg PO HS 12/18/20 [History] Morphine Sulfate ER [Ms Contin] 30 mg PO Q12HR 12/18/20 [History] Rivaroxaban [Xarelto] 20 mg PO HS 12/18/20 [History] Turmeric Root Extract [Turmeric] 500 mg PO DAILY 12/18/20 [History] Venlafaxine HCl [Effexor XR] 150 mg PO DAILY 12/18/20 [History] dexAMETHasone 20 mg PO TH 12/18/20 [History] Cefuroxime Axetil [Ceftin] 500 mg PO BID #10 tab 12/21/20 [Rx] Follow up Appointment(s)/Referral(s): oncologist, [Other] - 1 Week Pam Chacon MD [Primary Care Provider] - 1-2 days (patient instructed to make follow-up appointment since office closed at time of discharge) Patient Instructions/Handouts: Dehydration (DC), Multiple Myeloma (DC), Neutropenia (DC) Activity/Diet/Wound Care/Special Instructions: Dr. Bennett's office will call you on 12/22/20 with follow-up appointment Discharge Disposition: HOME SELF-CARE
[2020-12-22] MEDS ORDERED: dexAMETHasone 4 MG TAB PO SCH (09:00)
== END 2020-12-21 20:03 | disposition home or self-care (01) | DRG 871 ==
LOC: EC 11:43 → 4SSUR 14:26 → 5NMEDONC 12-20 21:10
PROVIDERS: ADMIT Hospitalist; ATTEND Hospitalist
DX: A41.50 Gram-negative sepsis, unspecified (principal); D61.810 Antineoplastic chemotherapy induced pancytopenia; J18.9 Pneumonia, unspecified organism; C90.00 Multiple myeloma not having achieved remission; E87.2 Acidosis; M87.88 Other osteonecrosis, other site; Z94.84 Stem cells transplant status; D84.821 Immunodeficiency due to drugs; E87.1 Hypo-osmolality and hyponatremia; R74.8 Abnormal levels of other serum enzymes; E86.0 Dehydration; D70.9 Neutropenia, unspecified; R50.81 Fever presenting with conditions classified elsewhere; T45.1X5A Adverse effect of antineoplastic and immunosuppressive drugs, initial encounter; E86.1 Hypovolemia; G89.3 Neoplasm related pain (acute) (chronic); Z20.822 Contact with and (suspected) exposure to COVID-19; Z17.1 Estrogen receptor negative status [ER-]; Z79.899 Other long term (current) drug therapy; Z79.01 Long term (current) use of anticoagulants; Z85.828 Personal history of other malignant neoplasm of skin; Z85.3 Personal history of malignant neoplasm of breast; Z86.718 Personal history of other venous thrombosis and embolism; Z90.13 Acquired absence of bilateral breasts and nipples; Z88.8 Allergy status to other drugs, medicaments and biological substances
CPT/HCPCS: 36415; 70450; 71046; 80048; 80053; 80076; 81001; 82150; 82784; 83605; 83690; 83735; 84100; 84145; 85025; 85610; 85730; 86140; 87040; 87449; 87635; 93005; 94760; 96365; 96375; 96376; 99285

== ENCOUNTER → 2021-06-02 | Outpatient (CLI) | payer BC, OTHER ==
--- NOTE | 2021-06-08 15:10 | PE ---
Nuclear medicine PET/CT HISTORY: C90.00 Multiple Myeloma, subsequent Patient received 7.7 mCi F-18 FDG intravenously and delayed scanning was performed from the skull bas e to the mid thighs. Localization and attenuation correction CT scan was performed. Correlation to prior nuclear medicine PET/CT 10/22/2020 Chest and neck: There is no cervical or supraclavicular adenopathy. There is a port in the right pect oral region coursing via a internal jugular approach, distal tip is within the right atrium. Bilatera l breast prostheses are present. There is no axillary, mediastinal, or hilar adenopathy. No pleural o r pericardial effusion. No evident lung mass. No suspicious uptake. ABDOMEN: No evident liver mass or retroperitoneal adenopathy. There is no ascites. No suspicious upta ke. Uptake along the bowel is felt likely to be physiologic. No pelvic adenopathy. Bowel uptake felt likely to be physiologic. Osseous structures: Low bone mineralization is again noted. There are lytic lucencies involving the l eft scapula at the level of the glenoid which are more conspicuous than on prior. T1 vertebral body s hows lytic lucency similar to prior as do additional thoracic and lumbar vertebral bodies. Pelvis aga in shows abnormal appearance most likely consistent with patient's history of myeloma, lytic lucencie s are present similar to prior. Proximal femur is also show lucencies consistent with underlying myel nancy. No suspicious uptake. Uptake along the gluteus muscle on the left is likely physiologic. Vertebr al compression deformities not well evaluated in the axial plane. IMPRESSION: Findings consistent with patient's history of multiple myeloma. No definite suspicious up take.
== END | disposition home or self-care (01) ==
LOC: RADPETMAIN 09:04
PROVIDERS: ATTEND Internal Medicine Hematology & Oncology
DX: C90.00 Multiple myeloma not having achieved remission (principal)
CPT/HCPCS: 78815; A9552

== ENCOUNTER → 2021-10-13 | Outpatient (CLI) | payer BC, OTHER ==
--- NOTE | 2021-10-17 15:27 | PE ---
EXAMINATION TYPE: PET CT fusion whole body DATE OF EXAM: 10/13/2021 COMPARISON: Prior PET/CT June 02, 2021 and older studies. HISTORY: Multiple myeloma progress study. TECHNIQUE: Following the intravenous administration of 8.03 mCi of F-18 FDG, whole body images are p erformed from the skull base to the bottom of feet. Images are reviewed on the computer in the coron al, axial, and sagittal planes. Reconstructed rotating images are created on independent workstation and reviewed on the computer. A localization and attenuation correction CT is performed in conjunc tion with the PET scan. SCAN: Subsequent Scan FINDINGS: SKULL BASE AND NECK: New Symmetric mild uptake paraspinal muscles of the upper cervical spine, corre late for inflammatory etiology. No suspicious areas of new hypermetabolic uptake. CHEST, MEDIASTINUM, AND HILAR REGION: No new areas of abnormal hypermetabolic uptake. ABDOMEN AND PELVIS: No new areas of abnormal hypermetabolic uptake. Normal excretion is redemonstrate d. LOWER EXTREMITIES: No suspicious areas of abnormal hypermetabolic uptake. Mild symmetric uptake anter olateral bilateral mid to lower legs could reflect inflammatory etiology, correlate clinically. More prominent but symmetric uptake anterolateral hindfoot and midfoot region could reflect inflammatory e tiology localized to the muscle. OSSEOUS STRUCTURES: No new areas of abnormal hypermetabolic uptake. Persistent round lucent lesions l eft scapula axial image 66 remain ametabolic some lucent and sclerotic areas in bilateral ribs redemo nstrated remain ametabolic areas of compression type fracture deformity and demineralization througho ut the thoracolumbar spine redemonstrated no new areas of abnormal hypermetabolic uptake.. OTHER CT: Stable hypodense right thyroid nodule axial image 63. Stable right internal jugular Medipor t catheter. Redemonstration of bilateral breast implants. Persistent moderate size fat-containing umbilical hernia. Mild diffuse fatty infiltration of liver re demonstrated. IMPRESSION: No new areas of abnormal hypermetabolic uptake to suggest active myeloma recurrence.
== END | disposition home or self-care (01) ==
LOC: RADXRMAIN 13:02
PROVIDERS: ATTEND Internal Medicine
DX: C90.00 Multiple myeloma not having achieved remission (principal)
CPT/HCPCS: 78816; A9552

== ENCOUNTER → 2023-04-16 | Outpatient (CLI) | payer BC, OTHER | LOC: 3 N SLEEP 13:41 | PROVIDERS: ATTEND Internal Medicine Critical Care Medicine | DX: G47.30 Sleep apnea, unspecified (principal); Z88.1 Allergy status to other antibiotic agents | CPT/HCPCS: 99211 ==

== ENCOUNTER → 2023-04-24 | Outpatient (CLI) | payer BC ==
--- NOTE | 2023-05-05 20:37 | SLS ---
SLEEP STUDY This is a home sleep study. HISTORY OF PRESENT ILLNESS: This is a 62-year-old female patient with known history of obstructive sleep apnea. The patient has a broken CPAP machine and at times she has not been receiving any treatment and the patient came into the sleep center to establish herself for further care regarding obstructive sleep apnea. A home sleep study was ordered to reestablish diagnosis. PERTINENT PHYSICAL FINDINGS: Body mass index of 34.5, height is 5 feet 4 inches, weight is 203 pounds. TECHNICAL DESCRIPTION: The Mak[employer] system was used to complete this home sleep study. This is a type 3 home sleep study. The total recording duration was 10 hours and 4 minutes. The study started at 10 p.m., ended at 8:04 a.m. There was 8 hours and 7 minutes of flow monitoring and 7 hours and 37 minutes of oxygen saturation monitoring. RESULTS: The respiratory analysis showed a total of 165 obstructive apneas and 387 obstructive hypopneas. The resulting AHI was 66.8. OXYGENATION ANALYSIS: There were a total of 467 oxygen desaturations with a lowest pulse ox established at 78%. Baseline pulse ox was 97% while awake. Average pulse ox was 91%. The patient spent approximately 1 hour and 31 minutes at a pulse ox of below 89%. CARDIAC SUMMARY: Average heart rate was 88, minimum heart rate was 47, maximum heart rate was 219. ASSESSMENT: 1. Severe symptomatic obstructive sleep apnea with an AHI of 66.8. 2. Chronic hypersomnia. 3. History of multiple myeloma. 4. History of pulmonary embolism. 5. History of skin cancer. PLAN: We will provide this patient an APAP unit, pressures of 5-15 cm of water. The patient is going to be offered an AirFit N20 nasal mask. An appropriate prescription will be sent to [facility]. The patient will see me back in 30 to 90 days to assess clinical response and compliancy. MMODL / IJN: [id number] /
== END ==
LOC: 3 N SLEEP 10:56
PROVIDERS: ATTEND Internal Medicine Critical Care Medicine
DX: G47.33 Obstructive sleep apnea (adult) (pediatric) (principal); G47.10 Hypersomnia, unspecified; G47.36 Sleep related hypoventilation in conditions classified elsewhere; Z85.79 Personal history of other malignant neoplasms of lymphoid, hematopoietic and related tissues; Z85.828 Personal history of other malignant neoplasm of skin; Z86.711 Personal history of pulmonary embolism; Z88.8 Allergy status to other drugs, medicaments and biological substances; Z79.01 Long term (current) use of anticoagulants

== ENCOUNTER 2023-08-20 21:15 | Emergency (ER) | payer BC ==
[2023-08-20 21:22] VITALS: RESP 18
[2023-08-20 22:52] LABS: Basophils # (A) 0.1 k/uL (0-0.2); Basophils % (A) 1 %; Eosinophils # (A) 0.3 k/uL (0-0.7); Eosinophils % (A) 3 %; HCT 39.6 % (34.0-46.0); HGB 13.1 gm/dL (11.4-16.0); Lymphocytes # (A) 2.2 k/uL (1.0-4.8); Lymphocytes % (A) 28 %; MCH 30.3 pg (25.0-35.0); MCHC 33.1 g/dL (31.0-37.0); MCV 91.5 fL (80.0-100.0); Mean Platelet Volume 6.9; Monocytes # (A) 0.6 k/uL (0-1.0); Monocytes % (A) 8 %; Neutrophils # (A) 4.5 k/uL (1.3-7.7); Neutrophils % (A) 57 %; Platelet Count 259 k/uL (150-450); RBC 4.33 m/uL (3.80-5.40); RDW 12.5 % (11.5-15.5); WBC 7.8 k/uL (3.8-10.6)
[2023-08-20 23:10] LABS: ALT 23 U/L (4-34); AST 32 U/L (14-36); African American GFR (CKD) >90 (>60 ml/min/1.73 sqM); Albumin 4.4 g/dL (3.5-5.0); Alkaline Phosphatase 98 U/L (38-126); Anion Gap 12 mmol/L; Blood Urea Nitrogen 17 mg/dL (7-17); Calcium 9.5 mg/dL (8.4-10.2); Carbon Dioxide 23 mmol/L (22-30); Chloride 104 mmol/L (98-107); Glucose 109 mg/dL (74-99); Non-African American GFR(CKD) >90 (>60 ml/min/1.73 sqM); Potassium 3.9 mmol/L (3.5-5.1); Sodium 139 mmol/L (137-145); Total Bilirubin 0.3 mg/dL (0.2-1.3); Total Protein 7.2 g/dL (6.3-8.2)
--- NOTE | 2023-08-20 23:41 | ED ---
URI HPI - General Chief Complaint: Upper Respiratory Infection Stated Complaint: Diarrhea,Fatigue,Restless Legs Time Seen by Provider: 08/20/23 22:18 Source: patient Mode of arrival: ambulatory Limitations: no limitations - History of Present Illness Initial Comments: 63-year-old female with history of multiple myeloma presenting with chief complaint of restless leg syndrome. Patient has recently been sick with diarrhea, cough, congestion, headache. This has been ongoing for the last 3 days. She has been experiencing a flareup of restless leg syndrome. She has previously taken Ativan for this issue which has helped. She called her oncologist today regarding this matter and he recommended she report to the ER and have her potassium and magnesium checked. Patient is having no chest pain or difficulty breathing. No numbness, tingling, weakness. No abdominal pain. - Related Data Home Medications Medication Instructions Recorded Confirmed Acyclovir [Zovirax] 400 mg PO BID 12/18/20 12/18/20 Cholecalciferol [Vitamin D3 (25 50 mcg PO DAILY 12/18/20 12/18/20 Mcg = 1000 Iu)] Esomeprazole Magnesium [NexIUM] 40 mg PO DAILY 12/18/20 12/18/20 Gabapentin [Neurontin] 400 mg PO TID 12/18/20 12/18/20 HYDROcodone/APAP 10-325MG [[place] 1 tab PO Q6HR PRN 12/18/20 12/18/20 10-325] L.acidoph,Paracasei, B.lactis 1 cap PO DAILY 12/18/20 12/18/20 [Probiotic] Morphine Sulfate ER [Ms Contin] 15 mg PO HS 12/18/20 12/18/20 Morphine Sulfate ER [Ms Contin] 30 mg PO Q12HR 12/18/20 12/18/20 Rivaroxaban [Xarelto] 20 mg PO HS 12/18/20 12/18/20 Turmeric Root Extract [Turmeric] 500 mg PO DAILY 12/18/20 12/18/20 Venlafaxine HCl [Effexor XR] 150 mg PO DAILY 12/18/20 12/18/20 dexAMETHasone [Decadron] 20 mg PO TH 12/18/20 12/18/20 Previous Rx's Medication Instructions Recorded cefUROXime axetiL [Ceftin] 500 mg PO BID #10 tab 12/21/20 rOPINIRole HCL [Requip] 0.25 mg PO HS #7 tablet 08/20/23 Allergies Allergy/AdvReac Type Severity Reaction Status Date / Time prochlorperazine AdvReac Rapid Verified 08/20/23 21:21 [From Compazine] Heart Rate Review of Systems ROS Statement: Those systems with pertinent positive or pertinent negative responses have been documented in the HPI. ROS Other: All systems not noted in ROS Statement are negative. Past Medical History Additional Past Medical History / Comment(s): multiple myeloma History of Any Multi-Drug Resistant Organisms: None Reported Past Surgical History: Breast Surgery Past Psychological History: No Psychological Hx Reported Smoking Status: Never smoker Past Alcohol Use History: None Reported Past Drug Use History: None Reported - Past Family History Father Family Medical History: Cancer Additional Family Medical History / Comment(s): from lung cancer Mother Family Medical History: AFIB, Coronary Artery Disease (CAD) General Exam Limitations: no limitations General appearance: alert, in no apparent distress Head exam: Present: atraumatic, normocephalic Eye exam: Present: normal appearance, EOMI Neck exam: Present: normal inspection. Absent: meningismus Respiratory exam: Present: normal lung sounds bilaterally. Absent: respiratory distress, wheezes, rales, rhonchi, stridor Cardiovascular Exam: Present: regular rate, normal rhythm, normal heart sounds. Absent: systolic murmur, diastolic murmur, rubs, gallop, clicks Neurological exam: Present: alert, oriented X3, normal gait Psychiatric exam: Present: normal affect, normal mood Skin exam: Present: normal color Course Vital Signs 08/20/23 08/21/23 08/21/23 21:19 00:11 00:22 Temperature 97.9 F 97.8 F Pulse Rate 106 H 98 Respiratory 18 20 18 Rate Blood Pressure 113/65 112/65 O2 Sat by Pulse 96 96 Oximetry Medical Decision Making - Medical Decision Making Was pt. sent in by a medical professional or institution (, PA, CHIP MIXING MACHINE OPERATOR, urgent care, hospital, or usp...) When possible be specific @ -No Did you speak to anyone other than the patient for history (EMS, parent, family, police, friend...)? What history was obtained from this source @ -No Did you review nursing and triage notes (agree or disagree)? Why? @ -I reviewed and agree with nursing and triage notes Were old charts reviewed (outside hosp., previous admission, EMS record, old EKG, old radiological studies, urgent care reports/EKG's, usp records)? Report findings @ -No old charts were reviewed Differential Diagnosis (chest pain, altered mental status, abdominal pain women, abdominal pain men, vaginal bleeding, weakness, fever, dyspnea, syncope, headache, dizziness, GI bleed, back pain, seizure, CVA, palpatations, mental health, musculoskeletal)? @ -Differential Musculoskeletal Muscular strain, contusion, ligament sprain, fracture, arthritis, septic arthritis, bursitis, cellulitis, muscle spasm, nerve compression, DVT, arterial occlusion, herpes zoster, electrolyte abnormality, tumor.... This is not meant to be in all inclusive list EKG interpreted by me (3pts min.). @ -As above X-rays interpreted by me (1pt min.). @ -None done CT interpreted by me (1pt min.). @ -None done U/S interpreted by me (1pt. min.). @ -None done What testing was considered but not performed or refused? (CT, X-rays, U/S, labs)? Why? @ -None What meds were considered but not given or refused? Why? @ -None Did you discuss the management of the patient with other professionals (professionals i.e. , PA, CHIP MIXING MACHINE OPERATOR, lab, RT, psych nurse, nephrology social worker, r programmer, teacher, strategic debriefing officer, director of casework)? Give summary @ -No Was smoking cessation discussed for >3mins.? @ -No Was critical care preformed (if so, how long)? @ -No Were there social determinants of health that impacted care today? How? (Homelessness, low income, unemployed, alcoholism, drug addiction, transportation, low edu. Level, literacy, decrease access to med. care, prison, rehab)? @ -No Was there de-escalation of care discussed even if they declined (Discuss DNR or withdrawal of care, Hospice)? DNR status @ -No What co-morbidities impacted this encounter? (DM, HTN, Smoking, COPD, CAD, Cancer, CVA, ARF, Chemo, Hep., AIDS, mental health diagnosis, sleep apnea, morbid obesity)? @ -None Was patient admitted / discharged? Hospital course, mention meds given and route, prescriptions, significant lab abnormalities, going to [facility] and other [facility] tin info. @ -63-year-old female presenting with chief complaint of restless leg syndrome. She has been ill for the last 3 days with diarrhea, cough, congestion, headache. Her oncologist recommended that she have her potassium and magnesium checked due to her restless leg syndrome. History and physical exam are conducted. The glucose is 109 other than that laboratory studies are grossly unremarkable. She is negative for influenza, RSV, COVID. Potassium and magnesium are WNL. Patient is given 1 mg of Ativan here in the ER. She is sent a short supply of Requip for her restless leg syndrome. Instructed to follow-up with her PCP. Discharged home. Follow-up with PCP. Report back to ER with any new or worsening symptoms. Discussed return parameters and answered all questions. Patient conveyed verbal understanding and agreed to the plan. I discussed this case in detail with my attending Dr. Riddle Undiagnosed new problem with uncertain prognosis? @ -No Drug Therapy requiring intensive monitoring for toxicity (Heparin, Nitro, Insulin, Cardizem)? @ -No Were any procedures done? @ -No Diagnosis/symptom? @ -Restless leg Acute, or Chronic, or Acute on Chronic? @ -Acute Uncomplicated (without systemic symptoms) or Complicated (systemic symptoms)? @ -Uncomplicated Side effects of treatment? @ -No Exacerbation, Progression, or Severe Exacerbation? @ -No Poses a threat to life or bodily function? How? (Chest pain, [place], HI, pneumonia, PE, COPD, DKA, ARF, appy, cholecystitis, CVA, Diverticulitis, Homicidal, Suicidal, threat to staff... and all critical care pts) @ -Low likelihood - Lab Data Result diagrams: 08/20/23 22:45 08/20/23 22:45 Lab Results 08/20/23 08/20/23 08/20/23 Range/Units 21:23 22:45 22:45 WBC 7.8 (3.8-10.6) k/uL RBC 4.33 (3.80-5.40) m/uL Hgb 13.1 (11.4-16.0) gm/dL Hct 39.6 (34.0-46.0) % MCV 91.5 (80.0-100.0) fL MCH 30.3 (25.0-35.0) pg MCHC 33.1 (31.0-37.0) g/dL RDW 12.5 (11.5-15.5) % Plt Count 259 (150-450) k/uL MPV 6.9 Neutrophils % 57 % Lymphocytes % 28 % Monocytes % 8 % Eosinophils % 3 % Basophils % 1 % Neutrophils # 4.5 (1.3-7.7) k/uL Lymphocytes # 2.2 (1.0-4.8) k/uL Monocytes # 0.6 (0-1.0) k/uL Eosinophils # 0.3 (0-0.7) k/uL Basophils # 0.1 (0-0.2) k/uL Sodium 139 (137-145) mmol/L Potassium 3.9 (3.5-5.1) mmol/L Chloride 104 (98-107) mmol/L Carbon Dioxide 23 (22-30) mmol/L Anion Gap 12 mmol/L BUN 17 (7-17) mg/dL Creatinine 0.64 (0.52-1.04) mg/dL Est GFR (CKD-EPI)AfAm >90 (>60 ml/min/1.73 sqM) Est GFR (CKD-EPI)NonAf >90 (>60 ml/min/1.73 sqM) Glucose 109 H (74-99) mg/dL Calcium 9.5 (8.4-10.2) mg/dL Magnesium 2.0 (1.6-2.3) mg/dL Total Bilirubin 0.3 (0.2-1.3) mg/dL AST 32 (14-36) U/L ALT 23 (4-34) U/L Alkaline Phosphatase 98 (38-126) U/L Total Protein 7.2 (6.3-8.2) g/dL Albumin 4.4 (3.5-5.0) g/dL Influenza Type A (PCR) Not Detected (Not Detectd) Influenza Type B (PCR) Not Detected (Not Detectd) RSV (PCR) Not Detected (Not Detectd) SARS-CoV-2 (PCR) Not Detected (Not Detectd) Disposition Clinical Impression: Restless leg Disposition: HOME SELF-CARE Condition: Good Instructions (If sedation given, give patient instructions): Restless Legs Syndrome (ED) Additional Instructions: Follow-up with PCP. Report back to ER with any new or worsening symptoms. Prescriptions: rOPINIRole HCL [Requip] 0.25 mg PO HS #7 tablet Is patient prescribed a controlled substance at d/c from ED?: No Referrals: Pam Chacon MD [Primary Care Provider] - 1-2 days Time of Disposition: 23:41
[2023-08-21] MEDS: LORazepam 1 MG TAB PO STA (00:18)
[2023-08-21 01:00] VITALS: BP 112/65; PULSE 98; TEMP 97.8
== END 2023-08-21 00:22 | disposition home or self-care (01) ==
LOC: EC 21:15
DX: G25.81 Restless legs syndrome (principal); Z88.8 Allergy status to other drugs, medicaments and biological substances; Z11.52 Encounter for screening for COVID-19
CPT/HCPCS: 36415; 80053; 83735; 85025; 87636; 99284

== ENCOUNTER → 2024-08-07 | Outpatient (CLI) | payer BC ==
--- NOTE | 2024-08-08 20:13 | PE ---
EXAMINATION TYPE: PET CT fusion whole body DATE OF EXAM: 08/07/2024 CLINICAL INDICATION:Female, 64 years old with history of C90.00 multiple myeloma; TECHNIQUE: Following the intravenous administration of 9.89 mCi of F-18 FDG, whole body images are performed from the skull base to the Mid thigh. Images are reviewed on the computer in the coronal, axial, and sagittal planes. Reconstructed rotating images are created on independent workstation and reviewed on the computer. A non-contrast CT is performed in conjunction with the PET scan. Glucose level 99 mg/dL CT DLP: Not recorded as the machine went down mGycm, Automated exposure control for dose reduction wa s used. COMPARISON: CT None, PET/CT 10/17/2021, MRI: None FINDINGS: Mediastinal SUV mean is 2.6. Hepatic parenchyma SUV mean is 3.3. SKULL BASE AND NECK: No suspicious radiotracer activity. There is some misregistration artifact noted within the face tricia on. CHEST, MEDIASTINUM, AND HILAR REGION: No suspicious radiotracer activity. ABDOMEN AND PELVIS: No suspicious radiotracer activity. MUSCULOSKELETAL STRUCTURES: No suspicious radiotracer activity. Visualized lower extremities demonstrate no evidence for abnormal uptake. Some uptake in the expected location of the ACL on the left. OTHER CT: Bilateral breast implants appear intact. Right chest wall. Port with tip terminating in the superior vena cava/cavoatrial junction. Fat-containing umbilical hernia and ventral wall hernias. IMPRESSION: No suspicious radiotracer activity. Machine malfunction during scan. [facility], , 08/08/2024 8:11 PM
== END | disposition home or self-care (01) ==
LOC: RADPETMAIN 11:45
PROVIDERS: ATTEND Internal Medicine Hematology & Oncology
DX: C90.00 Multiple myeloma not having achieved remission (principal); K42.9 Umbilical hernia without obstruction or gangrene
CPT/HCPCS: 78816; A9552

== ENCOUNTER 2024-09-01 05:59 | Day surgery (SDC) | payer BC ==
[2024-08-26 10:46] VITALS: BMI 34.9
[2024-09-01 06:40] VITALS: TEMP 96.7
[2024-09-01] MEDS: LACTATED RINGERS 1,000 ML IV SCH (06:40)
[2024-09-01] MEDS: LIDOCAINE 1% (10MG/ML) FOR IV START INTRADERMA STA (06:41)
[2024-09-01] MEDS: IV FLUID CONTINUATION 1,000 ML IV ONE (06:41)
[2024-09-01] MEDS ORDERED: ONDANSETRON 4 MG/2 ML VIAL IVP PRN (07:00)
[2024-09-01] MEDS ORDERED: LIDOCAINE 1% INJ 10MG/ML (20 ML MDV) ONE (07:00)
[2024-09-01] MEDS ORDERED: PROPOFOL 10 MG/ML 20 ML VIAL IV ONE (07:00)
[2024-09-01 07:38] VITALS: RESP 18
[2024-09-01 07:47] VITALS: BP 102/69; PULSE 70
[2024-09-01 07:48] LABS: Basophils # (A) 0.04 10*3/uL (0.00-0.10); Basophils % (A) 1.1 %; Eosinophils # (A) 0.12 10*3/uL (0.04-0.35); Eosinophils % (A) 3.2 %; HCT 35.7 % (37.2-46.3); HGB 12.2 g/dL (12.0-15.0); Lymphocytes # (A) 0.85 10*3/uL (0.90-5.00); Lymphocytes % (A) 22.5 %; MCH 30.7 pg (27.0-32.0); MCHC 34.2 g/dL (32.0-37.0); MCV 89.7 fL (80.0-97.0); Mean Platelet Volume 9.4 fL (9.5-12.2); Monocytes # (A) 0.42 10*3/uL (0.20-1.00); Monocytes % (A) 11.1 %; Neutrophils # (A) 2.34 10*3/uL (1.80-7.70); Neutrophils % (A) 61.8 %; Platelet Count 247 10*3/uL (140-440); RBC 3.98 10*6/uL (4.10-5.20); RDW 13.1 % (11.5-14.5); WBC 3.78 10*3/uL (4.50-10.00)
--- NOTE | 2024-09-01 08:49 | OP ---
OPERATIVE REPORT DATE OF SERVICE : PROCEDURE: Bone marrow aspirate and biopsy. INDICATION: The patient with history of multiple myeloma. She recently underwent a CAR-T cell therapy to rule out recurrence. DESCRIPTION OF PROCEDURE: After obtaining consent from the patient, the procedure was performed in the endoscopy suite under general sedation performed by Anesthesia Team. The patient was put in the left lateral decubitus position. The right posterior superior iliac crest was localized. Skin was cleansed with ChloraPrep, all sterile procedures were followed. A 2 mL of 2% xylocaine was used for local anesthetic. Jamshidi needle was inserted. About 20 mL aspirate and 2 cm core biopsy was obtained without any difficulties. Pressure applied afterwards. There was negligible blood loss. The patient tolerated the procedure very well without any immediate complications. MMODL / IJN: [id number] /
[2024-09-01 16:11] LABS: Reticulocyte % 1.56 % (0.10-1.80)
== END 2024-09-01 08:05 | disposition home or self-care (01) ==
LOC: OR 05:59
PROVIDERS: ATTEND Internal Medicine Hematology & Oncology
DX: C90.00 Multiple myeloma not having achieved remission (principal); I82.5Z9 Chronic embolism and thrombosis of unspecified deep veins of unspecified distal lower extremity; G89.3 Neoplasm related pain (acute) (chronic); C50.919 Malignant neoplasm of unspecified site of unspecified female breast; E61.1 Iron deficiency
CPT/HCPCS: 85025; 85045; 38222; J2003; J2704

== ENCOUNTER → 2024-09-03 | Outpatient (CLI) | payer BC ==
--- NOTE | 2024-09-04 07:55 | PE ---
EXAMINATION TYPE: PET CT fusion skull to thigh DATE OF EXAM: 09/03/2024 COMPARISON: Prior PET/CT August 07, 2024 and older studies. HISTORY: Multiple myeloma TECHNIQUE: Following the intravenous administration of 9.27 mCi of F-18 FDG, whole body images are p erformed from the top of skull to the bottom of feet. Images are reviewed on the computer in the cor onal, axial, and sagittal planes. Reconstructed rotating images are created on independent workstati on and reviewed on the computer. A localization and attenuation correction CT is performed in conju nction with the PET scan. Blood glucose level equals 93. SCAN: Subsequent Scan FINDINGS: HEAD AND NECK: No abnormal hypermetabolic uptake CHEST, MEDIASTINUM, AND HILAR REGION: No new areas of abnormal hypermetabolic uptake. ABDOMEN AND PELVIS: Normal excretion. No suspicious areas of abnormal hypermetabolic uptake. OSSEOUS STRUCTURES: No areas of abnormal hypermetabolic uptake. Mottled appearance to the pelvis and multiple levels of the thoracolumbar spine is redemonstrated. LOWER EXTREMITIES: No areas of abnormal hypermetabolic uptake. OTHER CT: Right internal jugular Mediport catheter redemonstrated. Bilateral breast implants again se en. No significant coronary artery calcifications. Liver is diffusely low dense suggesting diffuse fatty infiltrative hepatocellular disease. There is m oderate size umbilical hernia redemonstrated. There is suspected fatty lipoma medial aspect left prox imal leg level near axial image 447. IMPRESSION: No suspicious new areas of abnormal hypermetabolic uptake to suggest active neoplastic re currence. No significant change from most recent PET/CT. [facility], , 09/04/2024 7:53 AM
== END | disposition home or self-care (01) ==
LOC: RADPETMAIN 15:38
PROVIDERS: ATTEND Internal Medicine Hematology & Oncology
DX: C90.00 Multiple myeloma not having achieved remission (principal); Z98.82 Breast implant status
CPT/HCPCS: 78815

== ENCOUNTER → 2024-11-06 | Outpatient (CLI) | payer BC ==
[2024-11-06 15:59] LABS: ALT 18 U/L (8-44); AST 20 U/L (13-35); Albumin 4.5 g/dL (3.8-4.9); Albumin/Globulin Ratio 1.25 Ratio (1.60-3.17); Alkaline Phosphatase 95 U/L (41-126); Anion Gap 10.40 mmol/L (4.00-12.00); BUN/Creat Ratio 21.50 Ratio (12.00-20.00); Blood Urea Nitrogen 17.2 mg/dL (9.0-27.0); Calcium 9.9 mg/dL (8.7-10.3); Carbon Dioxide 28.6 mmol/L (21.6-31.8); Chloride 101 mmol/L (96-109); Cholesterol 185.00 mg/dL (0.00-200.00); Globulin 3.6 g/dL (1.6-3.3); Glucose 99 mg/dL (70-110); HDL Cholesterol 43.60 mg/dL (40.00-60.00); LDL Cholesterol,Calculated 85.0 mg/dL (0.0-131.0); Potassium 4.9 mmol/L (3.5-5.5); Sodium 140 mmol/L (135-145); Total Protein 8.1 g/dL (6.2-8.2); Triglycerides 282.00 mg/dL (0.00-149.00); VLDL Calculation 56.40 mg/dL (5.00-40.00)
== END | disposition home or self-care (01) ==
LOC: LABWHC1 09:48
PROVIDERS: ATTEND Internal Medicine
DX: E78.00 Pure hypercholesterolemia, unspecified (principal)
CPT/HCPCS: 36415; 80053; 80061